=== PATIENT | female | born 1950 | race Caucasian/White ===

== ENCOUNTER 2022-09-16 03:34 | Emergency (ER) | payer MEDICARE, OTHER, SELFPAY ==
[2022-09-16] VITALS (12 sets, daily range): BP systolic 113–129; BP diastolic 54–61; PULSE 60–82; RESP 20; TEMP 36.4–36.5; O2SAT 92–96; BMI 22.9
--- NOTE | 2022-09-16 04:19 | CRLHL7_ITS ---
For Patients: As a result of the Century Cures Act, medical imaging exams and procedure reports are released immediately into your electronic medical record. You may view this report before your referring provider. If you have questions, please contact your health care provider. INDICATION: Cough and syncope COMPARISON: May 17, 2022 TECHNIQUE: PA and lateral views of the chest were acquired FINDINGS: TUBES AND LINES: None. HEART AND MEDIASTINUM: The heart size is normal. The mediastinal contour appears normal for patient age. LUNGS AND PLEURAL SPACES: The lungs appear normal.The pleural spaces are unremarkable. OSSEOUS STRUCTURES: Age-appropriate appearance. No acute focal finding. IMPRESSION: No evidence of active pulmonary disease. Dictated by Noe Banks MD @ 09/16/2022 5:16:27 AM (Electronically Signed)
--- NOTE | 2022-09-16 04:28 | ED_ITS ---
HPI - General Adult General Chief complaint: Syncope/Fainted Stated complaint: Syncope Time Seen by Provider: 09/16/22 03:59 Source: patient and family Mode of arrival: ambulatory Limitations: no limitations History of Present Illness HPI narrative: 72-year-old female with a history of PVCs and rheumatoid arthritis presents to the emergency department feeling unwell for the past 9 days and a syncopal versus presyncopal episode early this morning. Patient states that she started having URI symptoms about 10 days ago, initially improving 2-3 days ago. She states that yesterday her symptoms worsened, causing her to lay in bed most of the day. She began having loose stools yesterday evening. This morning at about 2:00 a.m. which is about 1 hour prior to arrival, she felt the sudden urge to get up and go to the bathroom for a bowel movement. She can be prone to dizziness, therefore she often will sit at the side of the mentor to prior to getting up and walking when leaving a supine position. She reports that she begin feeling weak when she got up to go to the bathroom, made it to the toilet and felt like she was going to pass out. Because of this she lowered herself to the floor. She does think she completely lost consciousness but did have a large sudden loose bowel movement on the ground. After couple of minutes, she got herself up and cleaned up the mess. She called her daughter who advised she come to the ED. She gives deferring accounts to me verses the nurses on whether she passed out or not, she is not confident. There is not a large amount of lost time. Certainly no tongue biting or seizure like report. No postictal type symptoms. She does have a history of PVCs but no prior syncopal issues. Does not take Mayur inhibitors. No history of renal issues. She admits to poor activity and weakness while she has been ill for the last 24 hours. There was no blood in her stools. There has been no vomiting. She reports good oral intake. No fevers. She is immunosuppressed on methotrexate. She reports that she is vaccinated against COVID. She tried taking some Mucinex for her symptoms yesterday, nothing in the past 12 hours. No Tylenol, ibuprofen or other similar medications. Cough is productive of greenish-yellow sputum for the past 24 hours. No pertinent travel, no known exposures to any particular illness. Past medical history notable for RA, immunosuppressed on both Remicade and methotrexate. Surgical history is notable for remote appendectomy, uncomplicated. She has frequent PVCs but no specific cardiac issues. She has p.r.n. metoprolol, denies use of this in the last few days. Medications are reviewed and accurate per listed EMR. Many of these are p.r.n. under not currently in use. The only true long-term medications are her Synthroid, m ethotrexate, Remicade. She denies any drug allergies. Socially she is a nonsmoker with no pertinent travel. ROS is notable for the generalized, GI, respiratory symptoms as described above, otherwise denies times 12 systems. Related Data Home Medications Medication Instructions Recorded Confirmed azithromycin 250 mg tablet 250 mg PO 05/17/22 05/17/22 codeine 10 mg-guaifenesin 100 mg/5 5 ml PO 05/17/22 05/17/22 mL oral liquid fluticasone propionate 110 g inhalation 05/17/22 05/17/22 mcg/actuation HFA aerosol inhaler (Flovent HFA) folic acid 1 mg tablet 1 mg PO 05/17/22 05/17/22 infliximab 100 mg intravenous IV 05/17/22 05/17/22 solution (Remicade) levothyroxine 50 mcg tablet 50 mcg PO 05/17/22 05/17/22 (Synthroid) methotrexate sodium (PF) 25 mg/mL 25 mg IM 05/17/22 05/17/22 injection solution metoprolol tartrate 25 mg tablet 25 mg PO 05/17/22 05/17/22 prednisone 20 mg tablet 20 mg PO 05/17/22 05/17/22 syringe with needle 1 mL 27 x 1/2 #25 ea 05/17/22 05/17/22 (BD SafetyGlide Tuberculin Regular Bevel) Previous Rx's Medication Instructions Recorded doxycycline hyclate 100 mg capsule 100 mg PO BID #14 caps 09/16/22 Allergies Allergy/AdvReac Type Severity Reaction Status Date / Time No Known Drug Allergies Allergy Verified 05/17/22 14:43 PFSH PFS Social History Smoking Status: Former smoker Do you use any of these nicotine containing products: None Second hand tobacco smoke exposure: Yes ( smokes outside) How often do you have a drink containing alcohol: never AUDIT-C Alcohol total score: 0 Non-prescribed substance use: denies use service: No Exam Const: Vital Signs, click to edit/add: Vital Signs - 24 hr 09/16/22 03:40 09/16/22 03:59 09/16/22 04:02 Temperature 97.7 F 97.7 F Pulse Rate Pulse Rate [Right Pulse Oximeter] 75 75 Pulse Rate [orthos tatic lying] 73 Pulse Rate [orthos tatic sitting] 80 Pulse Rate [orthos tatic standing] 82 Respiratory Rate 20 Blood Pressure Blood Pressure [Ri ght Upper Arm] 128/59 L 113/61 Blood Pressure [or thostatic lying] 128/56 L Blood Pressure [or thostatic sitting] 126/54 L Blood Pressure [or thostatic standing ] 113/61 Pulse Oximetry 96 96 Oxygen Delivery Me od Room Air Room Air 09/16/22 04:12 09/16/22 04:15 09/16/22 04:30 Temperature Pulse Rate 76 76 72 Pulse Rate [Right Pulse Oximeter] Pulse Rate [orthos tatic lying] Pulse Rate [orthos tatic sitting] Pulse Rate [orthos tatic standing] Respiratory Rate Blood Pressure Blood Pressure [Ri ght Upper Arm] Blood Pressure [or thostatic lying] Blood Pressure [or thostatic sitting] Blood Pressure [or thostatic standing ] Pulse Oximetry 95 95 94 Oxygen Delivery Me thod 09/16/22 04:35 09/16/22 04:45 09/16/22 05:01 Temperature Pulse Rate 74 71 76 Pulse Rate [Right Pulse Oximeter] Pulse Rate [orthos tatic lying] Pulse Rate [orthos tatic sitting] Pulse Rate [orthos tatic standing] Respiratory Rate Blood Pressure 129/59 L Blood Pressure [Ri ght Upper Arm] Blood Pressure [or thostatic lying] Blood Pressure [or thostatic sitting] Blood Pressure [or thostatic standing ] Pulse Oximetry 93 92 95 Oxygen Delivery Me thod 09/16/22 05:04 09/16/22 05:15 Temperature Pulse Rate 73 74 Pulse Rate [Right Pulse Oximeter] Pulse Rate [orthos tatic lying] Pulse Rate [orthos tatic sitting] Pulse Rate [orthos tatic standing] Respiratory Rate Blood Pressure 125/61 Blood Pressure [Ri ght Upper Arm] Blood Pressure [or thostatic lying] Blood Pressure [or thostatic sitting] Blood Pressure [or thostatic standing ] Pulse Oximetry 94 93 Oxygen Delivery Me thod Documenting provider has reviewed patient's vital signs: yes Common normals: no apparent distress General appearance: cooperative and well kempt HENMT: Common normals: normocephalic, head/scalp atraumatic and TM's normal bilaterally Head and scalp: normal to inspection, normocephalic and atraumatic Tympanic membrane: TM's normal bilaterally Mouth: oral and palatal mucosa normal Throat: posterior oropharynx normal Eye: Common normals: EOMs intact bilaterally General eye: normal appearance of both eyes Other: Normal gaze and visual tracking Neck & C-Spine: Other: Mild anterior cervical and submandibular lymphadenopathy. No obvious mass Resp: Common normals: normal respiratory effort and no use of accessory muscles Effort & inspection: able to speak in complete sentences Other: Breath sounds are a little decreased but no obvious crackles, rhonchi or wheeze. Cardio: Common normals: regular rate, regular rhythm, no murmurs and peripheral pulses 2+ throughout Rate: regular rate Rhythm: regular rhythm Peripheral pulses: pulses 2+ throughout GI: Common normals: Normal to inspection, nondistended, normoactive bowel so unds present, soft to palpation, non-tender and no hepatosplenomegaly Palpation: soft and no hepatosplenomegaly Extremity: Common normals: no pedal edema Neuro: Speech: speech normal Motor exam: strength 5/5 throughout, no tremor noted and no movement abnormalities noted Psych: Common normals: thought process normal, cooperative, affect normal and activity/motor behavior normal Appearance: well kempt Thought process: normal thought process Insight: insight good Judgement: judgment good Skin: Common normals: no rashes or lesions noted General skin exam: no rashes or lesions noted Course Vital Signs Vital signs: Initial Vital Signs Temperature 97.7 F 09/16/22 03:40 Temperature Source Temporal Artery Scan 09/16/22 03:40 Pulse Rate 75 09/16/22 03:40 Pulse Rhythm 09/16/22 03:40 Blood Pressure 128/59 L 09/16/22 03:40 Blood Pressure Mean 82 09/16/22 03:40 Blood Pressure Position Supine 09/16/22 03:40 Pulse Oximetry 96 09/16/22 03:40 Oxygen Delivery Method 09/16/22 03:40 Vital Signs Temperature 97.7 F 09/16/22 03:40 Pulse Rate 75 09/16/22 03:40 Blood Pressure 128/59 L 09/16/22 03:40 Pulse Oximetry 96 09/16/22 03:40 Oxygen Delivery Method 09/16/22 03:40 Temperature 97.7 F 09/16/22 04:02 Pulse Rate 74 09/16/22 05:15 Respiratory Rate 20 09/16/22 04:02 Blood Pressure 125/61 09/16/22 05:04 Pulse Oximetry 93 09/16/22 05:15 Oxygen Delivery Method 09/16/22 04:02 Medical Decision Making MDM Narrative Medical decision making narrative: Story suggest but vagal syncope in the setting of underlying acute illness, naturally prone to hypotension and orthostatic symptoms as she describes. Different diagnosis also includes electrolyte abnormality, dehydration, infection, sepsis, pneumonia, cardiac disease or neurological process. Neurological exam and initial EKG are reassuring. Recommended chest x-ray, basic labs, swabs for COVID. Orthostatic vital signs and then will bolus 1 L of normal saline while we await lab results. She was agreeable to this. Update: Patient's vital signs have remained stable, tolerated her 1 L fluid bolus well. All x-ray and lab findings reviewed with patient, reassuring. She is insisting upon an antibiotic. We discussed the risks and benefits of this. I recommended that she wait 48 hours, as I do not suspect a bacterial infection. If her symptoms are not improving in 48 hours, then she may supervisor opening and picking antibiotic that I have sent to her local pharmacy. She was agreeable to the this plan. We discussed symptom management of her diarrhea, tips to help reduce her chance of recurrent syncope and p.r.n. use of Mucinex and other medications. She verbalizes understanding and agreement. Lab Data Lab results reviewed: Yes I reviewed the patient's lab results Lab results narrative: No leukocytosis. Normal procalcitonin, normal CRP. Remicade and methotrexate use could somewhat mask a white blood cell count but the other values are so reassuring. Do not suspect that this is a bacterial infection. A bacterial infection causing both diarrhea and a cough would also be quite unusual. Labs: Lab Results 02/10/23 02/10/23 02/10/23 Range/Units 04:30 04:30 04:30 WBC 9.14 (4.50-11.00) K/uL RBC 4.34 (4.00-5.20) m/uL Hgb 13.0 (12.0-16.0) gm/dL Hct 38.3 (33.0-51.0) % MCV 88 (80-100) fL MCH 30 (26-34) pg MCHC 34 (32-36) gm/dL RDW Coeff of Katia 13.3 (11.5-15.5) % Plt Count 244 (140-440) K/uL Neut % (Auto) 83.6 H (42.0-72.0) % Lymph % (Auto) 10.2 L (20-44) % Gibson % (Auto) 5.8 (0.0-11.0) % Eos % (Auto) 0.1 (0.0-7.0) % Baso % (Auto) 0.2 (0.0-3.0) % Neut # (Auto) 7.60 H (1.7-7.0) K/uL Lymph # (Auto) 0.90 (0.90-2.90) K/uL Gibson # (Auto) 0.50 (0.00-0.90) K/UL Eos # (Auto) 0.01 (0.00-0.50) K/uL Baso # (Auto) 0.02 (0.00-0.30) K/uL Sodium 134 L (135-149) mmol/L Potassium 4.1 (3.6-5.1) mmol/L Chloride 104 (96-114) mmol/L Carbon Dioxide 23 (20-32) mmol/L BUN 9 (7-30) mg/dL Creatinine 0.7 (0.5-1.5) mg/dL Estimated Creat Clear 37.24 Estimated GFR 91 ml/min Glucose 129 H (60-115) mg/dL Calcium 8.5 (8.4-10.6) mg/dL Troponin I < 0.01 L (0.01-0.04) ng/mL C-Reactive Protein 0.7 (0.5-1.0) mg/dL NT-Pro-B Natriuret Pep 838 pg/mL Procalcitonin 0.06 (<0.50) ng/mL SARS-CoV-2 (PCR) (Negative) Influenza Type A (PCR) (Negative) Influenza Type B (PCR) (Negative) RSV (PCR) (Negative) POC Troponin I 0.00 L (0.01-0.04) ng/ml 09/16/22 Range/Units 04:30 WBC (4.50-11.00) K/uL RBC (4.00-5.20) m/uL Hgb (12.0-16.0) gm/dL Hct (33.0-51.0) % MCV (80-100) fL MCH (26-34) pg MCHC (32-36) gm/dL RDW Coeff of Katia (11.5-15.5) % Plt Count (140-440) K/uL Neut % (Auto) (42.0-72.0) % Lymph % (Auto) (20-44) % Gibson % (Auto) (0.0-11.0) % Eos % (Auto) (0.0-7.0) % Baso % (Auto) (0.0-3.0) % Neut # (Auto) (1.7-7.0) K/uL Lymph # (Auto) (0.90-2.90) K/uL Gibson # (Auto) (0.00-0.90) K/UL Eos # (Auto) (0.00-0.50) K/uL Baso # (Auto) (0.00-0.30) K/uL Sodium (135-149) mmol/L Potassium (3.6-5.1) mmol/L Chloride (96-114) mmol/L Carbon Dioxide (20-32) mmol/L BUN (7-30) mg/dL Creatinine (0.5-1.5) mg/dL Estimated Creat Clear Estimated GFR ml/min Glucose (60-115) mg/dL Calcium (8.4-10.6) mg/dL Troponin I (0.01-0.04) ng/mL C-Reactive Protein (0.5-1.0) mg/dL NT-Pro-B Natriuret Pep pg/mL Procalcitonin (<0.50) ng/mL SARS-CoV-2 (PCR) Negative SARS-CoV-2 (Negative) Influenza Type A (PCR) Negative PCR FLU A (Negative) Influenza Type B (PCR) Negative PCR FLU B (Negative) RSV (PCR) Negative PCR RSV (Negative) POC Troponin I (0.01-0.04) ng/ml Imaging Data Chest x-ray: My impression: Normal chest x-ray, degenerative spine changes Radiologist's impression: IMPRESSION: No evidence of active pulmonary disease. ECG Data Attestation: I personally reviewed and interpreted this ECG as follows: Prior ECG tracings: not available for review (Reviewed from old EMR and current, none available.) Interpretation: Sinus rhythm with inverted T-waves in some mild left ventricular hypertrophy. Otherwise normal axis with no significant ST elevation or depression to suggest acute ischemia. Discharge Plan Discharge Clinical Impression: Vasovagal syncope, Viral infection Patient Disposition: Home w/ Parent or Adult Condition: Improved Instructions: Syncope in Older Adults (ED) Additional Instructions: As we discussed, passing out with diarrhea episodes is unfortunately common and tends to worsen as people age. We did not see any signs of anemia, electrolyte abnormality, bacterial infection or inflammation that was causing today's symptoms. Your swabs for influenza, COVID and RSV are also negative. I do suspect that you have a viral illness causing your cough and diarrhea symptoms. Your chest x-ray was also completely clear. Being on Remicade and methotrexate can skew a couple of my blood tests, but your procalcitonin and inflammatory markers are so low, that I do not suspect that we are missing a bacterial infection here. As we discussed, there can be risks to taking antibiotics including more dangerous super infections such as C diff. I have recommended that you wait on starting any antibiotics. It is okay and encouraged to take Imodium for your diarrhea. If your symptoms are not improving in a couple of days, you may supervisor opening and picking the doxycycline, the antibiotic I have sent to your pharmacy and started for your cough. If your symptoms are not improving 3 days after starting the antibiotic, follow up with your primary care provider. Drink plenty of fluids and eat salt containing foods while you are recovering. Get up slowly from bed as becoming lightheaded, especially with when you have the urge to have a bowel movement are very common. Activity Level: Activity as Tolerated Discharge Diet: Regular Prescriptions: New doxycycline hyclate 100 mg capsule 100 mg PO BID Qty: 14 0RF No Action prednisone 20 mg tablet 20 mg PO azithromycin 250 mg tablet 250 mg PO Label Comments: Has not started the medication yet codeine-guaifenesin 10-100 mg/5 mL liquid 5 ml PO Label Comments: TAKE 10 ML BY MOUTH AT BEDTIME IF NEEDED FOR COUGH. methotrexate sodium (PF) 25 mg/mL solution 25 mg IM (DME) BD SafetyGlide TB Reg Bevel 1 mL 27 x 1/2 syringe See Rx Instructions .ROUTE .MEDSUPPLY Qty: 25 Rx Instructions: As directed metoprolol tartrate 25 mg tablet 25 mg PO Label Comments: Take 1-2 tablets by mouth daily as needed for palpitations levothyroxine [Synthroid] 50 mcg tablet 50 mcg PO folic acid 1 mg tablet 1 mg PO fluticasone propionate [Flovent HFA] 110 mcg/actuation HFA aerosol inhaler inhalation infliximab [Remicade] 100 mg recon soln IV Follow Up/Referrals: Alla Valero PA-C [Primary Care Provider] - Stand Alone Forms: MyHealth Info Instructions
[2022-09-16] MEDS: 0.9 % SODIUM CHLORIDE 1000 ml 1,000 ML IV (04:41)
[2022-09-16 04:43] LABS: Basophils Absolute Auto 0.02 K/uL (0.00-0.30); Basophils Percent Auto 0.2 % (0.0-3.0); Eosinophils Absolute Auto 0.01 K/uL (0.00-0.50); Eosinophils Percent Auto 0.1 % (0.0-7.0); Hematocrit 38.3 % (33.0-51.0); Immature Granulocytes Abs Auto 0.01 K/uL (0.00-0.30); Immature Granulocytes Pct Auto 0.1 %; Lymphocytes Percent Auto 10.2 % (20-44); Mean Corpuscular HGB Conc 34 gm/dL (32-36); Mean Corpuscular Hemoglobin 30 pg (26-34); Mean Corpuscular Volume 88 fL (80-100); Monocytes Percent Auto 5.8 % (0.0-11.0); Neutrophils Percent Auto 83.6 % (42.0-72.0); Platelet Count* 244 K/uL (140-440); RDW Coefficient of Variation % 13.3 % (11.5-15.5); Red Blood Count 4.34 m/uL (4.00-5.20); White Blood Count* 9.14 K/uL (4.50-11.00)
[2022-09-16 04:44] LABS: Slide Review Reflex No
[2022-09-16 04:55] LABS: Chloride* 104 mmol/L (96-114)
[2022-09-16 04:56] LABS: Potassium* 4.1 mmol/L (3.6-5.1); Sodium* 134 mmol/L (135-149)
[2022-09-16 04:58] LABS: Creatinine* 0.7 mg/dL (0.5-1.5); Est. Creatinine Clearance* 37.24; Estimated Glomerular Filt Rate 91 ml/min
[2022-09-16 04:59] LABS: Blood Urea Nitrogen* 9 mg/dL (7-30); Carbon Dioxide* 23 mmol/L (20-32); Glucose* 129 mg/dL (60-115)
[2022-09-16 05:00] LABS: Calcium* 8.5 mg/dL (8.4-10.6)
[2022-09-16 05:02] LABS: C Reactive Protein* 0.7 mg/dL (0.5-1.0)
[2022-09-16 05:10] LABS: NT Pro B Type NatriureticPept* 838 pg/mL
[2022-09-16 05:16] LABS: Procalcitonin* 0.06 ng/mL (<0.50); Troponin I* < 0.01 ng/mL (0.01-0.04)
[2022-09-16 05:20] LABS: PCR FLU A Negative PCR FLU A (Negative); PCR FLU B Negative PCR FLU B (Negative); PCR RSV Negative PCR RSV (Negative)
[2022-09-16 05:21] LABS: SARS PCR* Negative SARS-CoV-2 (Negative)
[2022-09-16 06:00] LABS: Appearance Urine Clear (Clear); Bilirubin Urine Negative (Negative); Blood Urine Negative (Negative); Color Urine Yellow (Yellow); Glucose Urine Negative (Negative); Ketones Urine Negative (Negative); Leukocyte Esterase Urine Negative (Negative); Nitrite Urine Negative (Negative); Protein Urine Negative (Negative); Specific Gravity Urine 1.015 (1.000-1.030); Urobilinogen Urine 0.2 (0.2-1.0); pH Urine 6.5 (5.0-8.5)
== END 2022-09-16 05:57 | disposition home or self-care (01) ==
PROVIDERS: Emergency Provider Family Medicine; PCP Student in an Organized Health Care Education/Training Program
DX: R55 Syncope and collapse (principal); B34.9 Viral infection, unspecified
CPT/HCPCS: 36415; 71046; 80048; 81003; 83880; 84145; 84484; 85025; 86140; 87502; 87634; 87635; 93005; 99284; 99285; J7030

== ENCOUNTER 2024-02-09 16:28 | Emergency (ER) | payer MEDICARE, OTHER, SELFPAY ==
[2024-02-09 16:39] VITALS: BP 128/77; PULSE 78; RESP 18; TEMP 36.1; O2SAT 97; BMI 24.2
[2024-02-09 16:57] LABS: Appearance Urine Clear (Clear); Bilirubin Urine Negative (Negative); Blood Urine Negative (Negative); Color Urine Yellow (Yellow); Glucose Urine Negative (Negative); Ketones Urine Negative (Negative); Leukocyte Esterase Urine Negative (Negative); Nitrite Urine Negative (Negative); Protein Urine Negative (Negative); Specific Gravity Urine <= 1.005 (1.000-1.030); Urobilinogen Urine 0.2 (0.2-1.0); pH Urine 5.5 (5.0-8.5)
--- OUTSIDE RECORDS SUMMARY | 2024-02-09 17:04 | XMS_ITS | Continuity of Care Document ---
Author Organization [facility] Address [address] [address] [place] [address] Phone Care Team Providers Care Back Joiner Name Role Phone Sherlyn Nash CRNA Unavailable Unavailable Allergies, Adverse Reactions, Alerts Substance Reaction Status Criticality Sulfa (Sulfonamide Antibiotics) Active No Information epinephrine Faint Active No Information Medications Medication Instructions Dosage Effective Dates (start - stop) Status Comments metoprolol succinate ER 25 mg tablet,extended release 24 hr take 1 Tablet by oral route every as needed as needed 25 MG - Active SUDAFED (unknown strength) as needed Not Available - Active Flonase Allergy Relief 50 mcg/actuation nasal spray,suspension spray 2 spray by intranasal route every day in each nostril as needed 100-100 MCG - Active famotidine 10 mg tablet take 1 tablet by oral route every day as needed 10 MG - Active Fiber Gummies 2 gram chewable tablet - Active Multivitamin unknown Oral - Active Vitamin D3 2,000 unit capsule take 1 tablet per day - Active REFRESH OPTIVE (unknown strength) Not Available - Active PROBIOTIC (unknown strength) take 1 tablespoon by oral route every day Not Available - Active Enbrel 50 mg/mL (0.98 mL) subcutaneous syringe inject 1 milliliter by subcutaneous route every week 50 MG - Active Rasuvo (PF) 25 mg/0.5 mL subcutaneous auto-injector inject 0.5 milliliter by subcutaneous route every week 25 MG - Active Tirosint 50 mcg capsule take 1 capsule by oral route every day 50 MCG - Active folic acid 1 mg tablet take 1 tablet by oral route every day 1 MG - Active aspirin 81 mg chewable tablet chew 1 tablet by oral route every week 81 MG - Active ibuprofen 800 mg tablet take 1 tablet by oral route 3 times every day with food 800 MG - Active SUDAFED (unknown strength) as needed Not Available - No Longer Active Prevacid 30 mg capsule,delayed release take 1 capsule by oral route every day before a meal 30 MG - No Longer Active metoprolol succinate ER 25 mg tablet,extended release 24 hr take 1 Tablet by oral route every as needed 25 MG - No Longer Active Procedures Procedure Date Colonoscopy Flex; W/bx /mx Level Iv-surg Path Gross/micro 21 Offic/outpt E&m Estab Low-mod 9 Ugi Endo; Dx W/wo Collec Specm 19 Ugi Endo; W/bx /mx Level Iv-surg Path Gross/micro 17 Colorectal Ca Screen Hi Risk I 16 Advance Directives Directive Yes / No Effective Date File Name No Information Encounters Encounter Description Practice Location Reason(s) For Visit Diagnoses Date Provider Providers Copied on Encounter [facility], [address] [address], [place], [place], [id number], [place] tel:[phone] Terrence [facility] No Information 1 Charity Plata. [address] [facility], [facility] [address], [place], [place], [id number], [place]. tel:[phone] Referring Provider: Ab Bowers, [address], [address]. tel:[phone] [facility], [address] [address], [place], [id number], [place] tel:[phone] [facility] Other hemorrhoidsDiv erticulosis large intestine w/o perforation or abscess w/o bleedingCecal polypEncounter for screening for malignant neoplasm of colonPersonal history of colonic polypsBenign neoplasm of cecumDvrtclos of lg int w/o perforation or abscess w/o bleedingBenign neoplasm of cecumPersonal history of colonic polyps 1 Rosemary Berger. [address] [facility], [facility] [address], [place], [id number], [place]. tel:[phone] Referring Provider: Referral Self, USE FOR SELF REFERRALS. [facility], [address] [address], [facility] [place], [id number], tel:[phone] [facility] No Information 1 Marilee Ferrera. [address] [facility], [facility] [address], [place], [id number], [place]. tel:[phone] Offic/outpt E&m Estab Low-mod [facility], [address] [address], [place], [id number], [place] tel:[phone] [facility] GI Symptoms or Concerns (chief complaint) HematocheziaIn ternal and external hemorrhoids without complicationOt her hemorrhoids 9 Jayesh Godwin. [address] [facility], [facility] [address], [place], [id number], [place]. tel:[phone] Referring Provider: [place] R, [address] [place], [address]. tel:[phone] [facility], [address] [address], [facility] [place], [id number], [place] tel:[phone] [facility] Gastroesophage al reflux disease without esophagitisGas tro-esophageal reflux disease without esophagitis Fabiola Lynne [address], [id number], [place]. tel:[phone] Referring Provider: [place] R, [address] [place], [address]. tel:[phone] [facility], [address] [address], [place], [place], [id number], [place] tel:[phone] [facility] Epigastric painEpigastric pain 7 Kwesi Brooks. [facility], [id number], [place]. tel:[phone] Referring Provider: [place] R, [address] [place], [address]. tel:[phone] [facility], [address] [address], [place], [place], [address], [place] tel:[phone] [facility] Personal history of colonic polypsDivertic ulosis large intestine w/o perforation or abscess w/o bleedingIntern al and external hemorrhoids without complicationEn counter for screening for malignant neoplasm of colonResidual hemorrhoidal skin tagsDvrtclos of lg int w/o perforation or abscess w/o bleedingPerson al history of colonic polyps 6 Chaz Galarza. [address] [place] [address], [id number], [place]. tel:[phone] Referring Provider: Birgit Prince MD, [address] [place], [address]. tel:[phone] Family History Family Member Type Diagnosis Age At Onset Mother Problem (finding) Thyroid disorder Son Problem (finding) Colon polyps Son Problem (finding) Alive and well Daughter Problem (finding) Alive and well Brother Problem (finding) Alive and well Father Problem (finding) Immunizations Vaccine Date Status Comments influenza, high-dose seasona l, quadrivalent, .7mL dose, preservative free administered Note: [facility] bi-direct ional interface ; Source: Other Registry influenza, high dose seasona l, preservative-free administered Note: [facility] bi-direct ional interface ; Source: Other Registry Prevnar 13 administered Note: [facility] bi-d irectional interface ; Source: Other Registry zoster vaccine recombinant administered N ote: [facility] bi-directional interface ; Source: Other Registry zoster vaccine recombinant administered N ote: [facility] bi-directional interface ; Source: Other Registry influenza, high dose seasona l, preservative-free administered Note: [facility] bi-direct ional interface ; Source: Other Registry Afluria Qd administered Note: [facility] bi-directional interface ; Source: Other Registry Afluria Qd administered Note: [facility] bi-directional interface ; Source: Other Registry tetanus toxoid, reduced diphtheria toxoid, and acellular pertussis vaccine, adsorbed administered Note: [facility] b i-directional interface ; Source: Other Registry Afluria Qd administered Note: [facility] bi-directional interface ; Source: Other Registry Afluria Qd administered Note: [facility] bi-directional interface ; Source: Other Registry Influenza, seasonal, injecta ble, preservative free administered Note: [facility] bi-direct ional interface ; Source: Other Registry Influenza, seasonal, injectable administe red Note: [facility] bi- directional interface ; Source: Other Registry Novel [id number], all formulations administered Note: [facility] bi-direct ional interface ; Source: Other Registry Influenza, seasonal, injectable administe red Note: [facility] bi- directional interface ; Source: Other Registry Payers Payer name Insurance type Covered republican ID Authoriza tion(s) Medicare NGS MB [id number] [employer] [id number] Social History Type Description Quantity Date Captured Comments Sex Female Smoking Status No Information Chief Complaint And Reason For Visit No Information Reason For Referral Reason For Referral No Information History Of Present Illness Encounter Date Complaint History Of Prese nt Illness GI Symptoms or Concerns Dianna Mays is a very pleasant 68-year-old female who has made an appointment for further evaluation of her hemorrhoids. Her last colonoscopy was in August 2015 and internal and external hemorrhoids were noted at that time. The patient states that she has known that she has had hemorrhoids for many years (at least 15 years). She is particularly bothered by occasional bleeding. She notes that cleaning up or stool leakage is a problem for her. She states that when she saw a colorectal surgeon 10 years ago (before she started Enbrel and methotrexate) banding was an option. She denies any rectal intercourse or rectal foreign bodies. She does admit to some minor straining with the second bowel movement a day. She does not use any fiber supplements and has not used anything to treat her hemorrhoids. Functional Status Date Functional Assessmen t No Information Instructions Date Instruction Additional Infor thais Diverticulosis/Diverticulitis Re lated to Cecal polyp Colon Polyps Related to Cecal polyp Hemorrhoids Related to Cecal polyp Colon Cancer Prevention Related to Cecal polyp High Fiber Diet Related to Cecal polyp high fiber diet Related to Inter nal and external hemorrhoids without complication Hemorrhoids Related to Inter nal and external hemorrhoids without complication Diverticulosis/Diverticulitis Re lated to Diverticulosis large intestine w/o perforation or abscess w/o bleeding High Fiber Diet Related to Diver ticulosis large intestine w/o perforation or abscess w/o bleeding Hemorrhoids Related to Inter nal and external hemorrhoids without complication Colon Polyps Related to Perso nal history of colonic polyps Colon Cancer Prevention Related to Personal history of colonic polyps Assessments Type Assessment Date No Information Patient Care Teams Name Effective Dates (start - stop) Status Members No Information
--- OUTSIDE RECORDS SUMMARY | 2024-02-09 17:05 | XMS_ITS | Continuity of Care Document ---
Author Organization [facility] Address [address] [place] [address] Phone Care Team Providers Care Business Objects Developer Name Role Phone Kaden Fitzgerald MD Unavailable Unavailable Allergies, Adverse Reactions, Alerts Substance Reaction Status Criticality Sulfa (Sulfonamide Antibiotics) GI problems Active No Information epinephrine Blood pressure drops(moderate) Active No Information Medications Medication Instructions Dosage Effective Dates (start - stop) Status Comments folic acid 1 mg tablet TAKE 1 TABLET EVERY MORNING - Active methotrexate sodium 25 mg/mL injection solution inject 0.6 milliliter by Subcutaneous route every week - Active 90 day supply. PRESERVATIVE FREE BD SafetyGlide Tuberculin Regular Bevel 1 mL 27 x 1/2 syringe TO BE USED WITH INJECTABLE METHOTREXATE - Active Remicade 100 mg intravenous solution infuse ( ) by intravenous route every ( ) weeks - Active multivitamin tablet take 1 tablet by oral route every day with food - Active Refresh Optive 0.5 %-0.9 % eye drops instill 1 drop by ophthalmic route in each eye 2 times every day - Active Vitamin D3 4,000 unit capsule take 1 Capsule by Oral route every day - Active levothyroxine 50 mcg tablet take 1 tablet (50MCG) by oral route every day 50 MCG - Active metoprolol tartrate 25 mg tablet take 1 tablet (25MG) by oral route as needed - Active Procedures Procedure Date Injection, infliximab, excludes biosimil ar, 10 mg Chemo, Iv Infusion, 1 Hr Chemo, Iv Infusion, Addl Hr Office/Outpatient Visit, Est Routine Venipuncture Rbc Sed Rate, Automated Assay Of Serum Albumin Assay Of Creatinine Transferase (Ast) (Sgot) Alanine Amino (Alt) (Sgpt) CReactive Protein Complete Cbc, Automated Remicade Infliximab Chemo, Iv Infusion, 1 Hr Chemo, Iv Infusion, Addl Hr Remicade Infliximab Chemo, Iv Infusion, 1 Hr Chemo, Iv Infusion, Addl Hr Routine Venipuncture Rbc Sed Rate, Automated Assay Of Serum Albumin Assay Of Creatinine Transferase (Ast) (Sgot) Alanine Amino (Alt) (Sgpt) CReactive Protein Complete Cbc, Automated Remicade Infliximab Chemo, Iv Infusion, 1 Hr Chemo, Iv Infusion, Addl Hr Remicade Infliximab Chemo, Iv Infusion, 1 Hr Chemo, Iv Infusion, Addl Hr Office/Outpatient Visit, Est Routine Venipuncture Rbc Sed Rate, Nonautomated Assay Of Serum Albumin Assay Of Creatinine Transferase (Ast) (Sgot) Alanine Amino (Alt) (Sgpt) CReactive Protein Complete Cbc, Automated Remicade Infliximab Chemo, Iv Infusion, 1 Hr Chemo, Iv Infusion, Addl Hr Remicade Infliximab Chemo, Iv Infusion, 1 Hr Chemo, Iv Infusion, Addl Hr Office/Outpatient Visit, Est Routine Venipuncture Rbc Sed Rate, Automated Assay Of Serum Albumin Assay Of Creatinine Transferase (Ast) (Sgot) Alanine Amino (Alt) (Sgpt) CReactive Protein Complete Cbc, Automated Remicade Infliximab Chemo, Iv Infusion, 1 Hr Chemo, Iv Infusion, Addl Hr Remicade Infliximab Chemo, Iv Infusion, 1 Hr Chemo, Iv Infusion, Addl Hr Office/Outpatient Visit, Est Routine Venipuncture Rbc Sed Rate, Automated Assay Of Serum Albumin Assay Of Creatinine Transferase (Ast) (Sgot) Alanine Amino (Alt) (Sgpt) CReactive Protein Complete Cbc, Automated Remicade Infliximab Chemo, Iv Infusion, 1 Hr Chemo, Iv Infusion, Addl Hr Solumedrol Up To 40mg Tx/Pro/Dx Inj New Drug Addon Remicade Infliximab Chemo, Iv Infusion, 1 Hr Chemo, Iv Infusion, Addl Hr Office/Outpatient Visit, Est Remicade Infliximab Chemo, Iv Infusion, 1 Hr Chemo, Iv Infusion, Addl Hr Remicade Infliximab Chemo, Iv Infusion, 1 Hr Chemo, Iv Infusion, Addl Hr Office/Outpatient Visit, Est Routine Venipuncture Rbc Sed Rate, Nonautomated Assay Of Serum Albumin Assay Of Creatinine Transferase (Ast) (Sgot) Alanine Amino (Alt) (Sgpt) CReactive Protein Complete Cbc, Automated Remicade Infliximab Chemo, Iv Infusion, 1 Hr Chemo, Iv Infusion, Addl Hr Remicade Infliximab Chemo, Iv Infusion, 1 Hr Chemo, Iv Infusion, Addl Hr Remicade Infliximab Chemo, Iv Infusion, 1 Hr Chemo, Iv Infusion, Addl Hr Orencia Abatacept Ther/Proph/Diag Iv Inf, Init Office/Outpatient Visit, Est Routine Venipuncture Assay Of Serum Albumin Assay Of Creatinine Transferase (Ast) (Sgot) Alanine Amino (Alt) (Sgpt) Rbc Sed Rate, Nonautomated CReactive Protein Tb Test, Cell Immun Measure Complete Cbc, Automated Orencia Abatacept Ther/Proph/Diag Iv Inf, Init Orencia Abatacept Ther/Proph/Diag Iv Inf, Init Office/Outpatient Visit, Est Routine Venipuncture Rbc Sed Rate, Nonautomated Assay Of Serum Albumin Assay Of Creatinine Transferase (Ast) (Sgot) Alanine Amino (Alt) (Sgpt) CReactive Protein Complete Cbc, Automated Orencia Abatacept Ther/Proph/Diag Iv Inf, Init Orencia Abatacept Ther/Proph/Diag Iv Inf, Init Office/Outpatient Visit, Est Routine Venipuncture Specimen Handling Assay Of Serum Albumin Assay Of Creatinine Transferase (Ast) (Sgot) Alanine Amino (Alt) (Sgpt) Ther/Proph/Diag Iv Inf, Init Orencia Abatacept Orencia Abatacept Ther/Proph/Diag Iv Inf, Init Orencia Abatacept Ther/Proph/Diag Iv Inf, Init Orencia Abatacept Ther/Proph/Diag Iv Inf, Init Office/Outpatient Visit, Est Routine Venipuncture Assay Of Serum Albumin Assay Of Creatinine Transferase (Ast) (Sgot) Alanine Amino (Alt) (Sgpt) Complete Cbc, Automated Orencia Abatacept Ther/Proph/Diag Iv Inf, Init Orencia Abatacept Ther/Proph/Diag Iv Inf, Init Orencia Abatacept Ther/Proph/Diag Iv Inf, Init Office/Outpatient Visit, Est Routine Venipuncture Rbc Sed Rate, Nonautomated Assay Of Serum Albumin Assay Of Creatinine Transferase (Ast) (Sgot) Alanine Amino (Alt) (Sgpt) CReactive Protein Complete Cbc, Automated Orencia Abatacept Chemo, Iv Infusion, 1 Hr Orencia Abatacept Chemo, Iv Infusion, 1 Hr Orencia Abatacept Chemo, Iv Infusion, 1 Hr Office/Outpatient Visit, Est Routine Venipuncture Rbc Sed Rate, Nonautomated Assay Of Serum Albumin Assay Of Creatinine Transferase (Ast) (Sgot) Alanine Amino (Alt) (Sgpt) CReactive Protein Complete Cbc, Automated Office/Outpatient Visit, Est Routine Venipuncture Specimen Handling Rbc Sed Rate, Nonautomated Assay Of Serum Albumin Assay Of Creatinine Transferase (Ast) (Sgot) Alanine Amino (Alt) (Sgpt) CReactive Protein Tb Test, Cell Immun Measure Complete Cbc, Automated Office/Outpatient Visit, Est Routine Venipuncture Assay Of Serum Albumin Assay Of Creatinine Transferase (Ast) (Sgot) Alanine Amino (Alt) (Sgpt) Complete Cbc, Automated Office/Outpatient Visit, Est Routine Venipuncture Rbc Sed Rate, Nonautomated Assay Of Serum Albumin Assay Of Creatinine Transferase (Ast) (Sgot) Alanine Amino (Alt) (Sgpt) CReactive Protein Complete Cbc, Automated Office/Outpatient Visit, Est Office/Outpatient Visit, Est Routine Venipuncture Assay Of Serum Albumin Assay Of Creatinine Transferase (Ast) (Sgot) Alanine Amino (Alt) (Sgpt) Complete Cbc, Automated Office/Outpatient Visit, Est Routine Venipuncture Specimen Handling Assay Of Serum Albumin Assay Of Creatinine Transferase (Ast) (Sgot) Alanine Amino (Alt) (Sgpt) Tb Test, Cell Immun Measure Office/Outpatient Visit, Est Routine Venipuncture Assay Of Serum Albumin Assay Of Creatinine Transferase (Ast) (Sgot) Alanine Amino (Alt) (Sgpt) Complete Cbc, Automated Office/Outpatient Visit, Est Routine Venipuncture Assay Of Serum Albumin Assay Of Creatinine Transferase (Ast) (Sgot) Alanine Amino (Alt) (Sgpt) Complete Cbc, Automated Office/Outpatient Visit, Est Routine Venipuncture Complete Cbc, Automated Assay Of Serum Albumin Assay Of Creatinine Transferase (Ast) (Sgot) Alanine Amino (Alt) (Sgpt) Office/Outpatient Visit, Est Routine Venipuncture Assay Of Serum Albumin Assay Of Creatinine Transferase (Ast) (Sgot) Alanine Amino (Alt) (Sgpt) Complete Cbc, Automated Vitamin D 25 Hydroxy Office/Outpatient Visit, Est Routine Venipuncture Complete Cbc, Automated Assay Of Serum Albumin Assay Of Creatinine Transferase (Ast) (Sgot) Alanine Amino (Alt) (Sgpt) Office/Outpatient Visit, Est Routine Venipuncture Assay Of Serum Albumin Assay Of Creatinine Transferase (Ast) (Sgot) Alanine Amino (Alt) (Sgpt) Complete Cbc, Automated Vitamin D 25 Hydroxy Office/Outpatient Visit, Est Routine Venipuncture Complete Cbc, Automated Assay Of Serum Albumin Assay Of Creatinine Transferase (Ast) (Sgot) Alanine Amino (Alt) (Sgpt) Office/Outpatient Visit, Est Routine Venipuncture Complete Cbc WAuto Diff Wbc Assay Of Serum Albumin Assay Of Creatinine Transferase (Ast) (Sgot) Alanine Amino (Alt) (Sgpt) Office/Outpatient Visit, Est Routine Venipuncture Complete Cbc WAuto Diff Wbc Assay Of Serum Albumin Assay Of Creatinine Transferase (Ast) (Sgot) Alanine Amino (Alt) (Sgpt) Office/Outpatient Visit, Est Routine Venipuncture Complete Cbc WAuto Diff Wbc Assay Of Serum Albumin Assay Of Creatinine Transferase (Ast) (Sgot) Alanine Amino (Alt) (Sgpt) Dxa Bone Density, Axial Office/Outpatient Visit, Est Routine Venipuncture Complete Cbc WAuto Diff Wbc Assay Of Serum Albumin Assay Of Creatinine Transferase (Ast) (Sgot) Alanine Amino (Alt) (Sgpt) Office/Outpatient Visit, Est Routine Venipuncture Complete Cbc WAuto Diff Wbc Rbc Sed Rate, Nonautomated CReactive Protein Assay Of Serum Albumin Assay Of Creatinine Transferase (Ast) (Sgot) Alanine Amino (Alt) (Sgpt) Office/Outpatient Visit, Est Routine Venipuncture Complete Cbc WAuto Diff Wbc Assay Of Serum Albumin Assay Of Creatinine Transferase (Ast) (Sgot) Alanine Amino (Alt) (Sgpt) Vitamin D 25 Hydroxy Office/Outpatient Visit, Est Routine Venipuncture Specimen Handling Complete Cbc WAuto Diff Wbc Assay Of Serum Albumin Assay Of Creatinine Transferase (Ast) (Sgot) Alanine Amino (Alt) (Sgpt) Office/Outpatient Visit, Est Routine Venipuncture Specimen Handling Complete Cbc WAuto Diff Wbc Assay Of Serum Albumin Assay Of Creatinine Transferase (Ast) (Sgot) Alanine Amino (Alt) (Sgpt) Office/Outpatient Visit, Est Routine Venipuncture Complete Cbc WAuto Diff Wbc Assay Of Serum Albumin Assay Of Creatinine Transferase (Ast) (Sgot) Alanine Amino (Alt) (Sgpt) Office/Outpatient Visit, Est Routine Venipuncture Specimen Handling Complete Cbc WAuto Diff Wbc CReactive Protein Assay Of Serum Albumin Assay Of Creatinine Transferase Ast Sgot Alanine Amino (Alt) (Sgpt) Dxa Bone Density, Axial Office/Outpatient Visit, New XRay Exam Of Hand 3v X-Ray Exam Of Foot 2v Routine Venipuncture Specimen Handling Anti Rheum Drugthxpyrx'D/Gvn CReactive Protein Complete Cbc WAuto Diff Wbc Rbc Sed Rate, Nonautomated Assay Of Serum Albumin Assay Of Creatinine Transferase Ast Sgot Alanine Amino Alt Sgpt Advance Directives Directive Yes / No Effective Date File Name No Information Encounters Encounter Description Practice Location Reason(s) For Visit Diagnoses Date Provider Providers Copied on Encounter [facility] , [address], [place], [address], [place] tel:[phone] [facility] , No Information 4 Lia Alfonso. [facility] [address], [place], [address], [place]. tel:[phone] Referring Provider: Kaden Wang, [facility] [address], [place], [address]. tel:[phone] Office/Outpa tient Visit, Est [facility] , [address], [place], [address], [place] tel:[phone] [facility] , Rheumatoid arthritis (chief complaint) Vitamin D deficiencySe ropositive RAOsteoporos is NOSCounselin gHigh risk medication monitoring 4 Lia Alfonso. [facility] [address], [place], [address], [place]. tel:[phone] Referring Provider: Kaden Wang, [facility] [address], [place], [address]. tel:[phone] [facility] , [address], [place], [address], [place] tel:[phone] [facility] , No Information Nov-2 4 Lia Alfonso. [facility] [address], [place], [address], [place]. tel:[phone] Referring Provider: Kaden Wang, [facility] [address], [place], [address]. tel:[phone] [facility] , [address], [place], [address], [place] tel:[phone] [facility] , No Information Mar-0 4 Jerson Vazquez. [address], [place], [address], [place]. tel:[phone] Referring Provider: Taylor Bonilla, [address], [place], [address]. 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 [address], [address], [place], [address], [place]. tel:[phone] Referring Provider: Taylor Bonilla, [address], [place], [address]. tel:[phone] [facility] , [address], [place], [address], [place] tel:[phone] [facility] , No Information 4 Lia Aflonso. [facility] [address], [place], [address], [place]. tel:[phone] Referring Provider: Kaden Wang, [facility] [address], [place], [address]. tel:[phone] [facility] , [address], [place], [address], [place] tel:[phone] [facility] , No Information 3 Lia Alfonso. [facility] [address], [place], [address], [place]. tel:[phone] Referring Provider: Kaden Wang, [facility] [address], [place], [address]. tel:[phone] Office/Outpa tient Visit, Est [facility] , [address], [place], [address], [place] tel:[phone] [facility] , Rheumatoid arthritis (chief complaint) Vitamin D deficiencySe ropositive RAOsteoporos is NOSCounselin [facility] risk medication monitoring 3 Lia Alfonso. [facility] [address], [place], [address], [place]. tel:[phone] Referring Provider: Kaden Wang, [facility] [address], [place], [address]. tel:[phone] [facility] , [address], [place], [address], [place] tel:[phone] [facility] , No Information 3 Lia Alfonso. [facility] [address], [place], [address], [place]. tel:[phone] Referring Provider: Kaden Wang, [facility] [address], [place], [address]. tel:[phone] [facility] , [address], [place], [address], [place] tel:[phone] [facility] , No Information 3 Lia Alfonso. [facility] [address], [place], [address], [place]. tel:[phone] Referring Provider: Kaden Wang, [facility] [address], [place], [address]. tel:[phone] Office/Outpa tient Visit, Est [facility] , [address], [place], [address], [place] tel:[phone] [facility] , Rheumatoid arthritis (chief complaint) Vitamin D deficiencySe ropositive RAOsteoporos is NOSCounselin [facility] risk medication monitoringCe rvicalgia 3 Lia Alfonso. [facility] [address], [place], [address], [place]. tel:[phone] Referring Provider: Kaden Wang, [facility] [address], [place], [address]. tel:[phone] [facility] , [address], [place], [address], [place] tel:[phone] [facility] , No Information 3 Lia Alfonso. [facility] [address], [place], [address], [place]. tel:[phone] Referring Provider: Kaden Wang, [facility] [address], [place], [address]. tel:[phone] [facility] , [address], [place], [address], [place] tel:[phone] [facility] , No Information 3 Elena Escalona. [facility] [address], [place], [address], [place]. tel:[phone] Referring Provider: Iqra Bonilla, [facility] [address], [place], [address]. tel:[phone] Office/Outpa tient Visit, Est [facility] , [address], [place], [address], [place] tel:[phone] [facility] , Rheumatoid arthritis (chief complaint) Vitamin D deficiencySe ropositive RAOsteoporos is NOSCounselin [facility] risk medication monitoring 3 Lia Alfonso. [facility] [address], [place], [address], [place]. tel:[phone] Referring Provider: Kaden Wang, [facility] [address], [place], [address]. tel:[phone] [facility] , [address], [place], [address], [place] tel:[phone] [facility] , No Information 3 Lia Alfonso. [facility] [address], [place], [address], [place]. tel:[phone] Referring Provider: Kaden Wang, [facility] [address], [place], [address]. tel:[phone] [facility] , [address], [place], [address], [place] tel:[phone] [facility] , No Information 3 Lia Alfonso. [facility] [address], [place], [address], [place]. tel:[phone] Referring Provider: Kaden Wang, [facility] [address], [place], [address]. tel:[phone] Office/Outpa tient Visit, Est [facility] , [address], [place], [address], [place] tel:[phone] Telehealth Rheumatoid arthritis (chief complaint) Vitamin D deficiencySe ropositive RAOsteoporos is NOSCounselin [facility] risk medication monitoring 2 Lia Alfonso. [facility] [address], [place], [address], [place]. tel:[phone] Referring Provider: Kaden Wang, [facility] [address], [place], [address]. tel:[phone] [facility] , [address], [place], [address], [place] tel:[phone] [facility] , No Information 2 Lia Alfonso. [facility] [address], [place], [address], [place]. tel:[phone] Referring Provider: Kaden Wang, [facility] [address], [place], [address]. tel:[phone] [facility] , [address], [place], [address], [place] tel:[phone] [facility] , No Information 2 Lia Alfonso. [facility] [address], [place], [address], [place]. tel:[phone] Referring Provider: Kaden Wang, [facility] [address], [place], [address]. tel:[phone] Office/Outpa tient Visit, Est [facility] , [address], [place], [address], [place] tel:[phone] [facility] , Rheumatoid arthritis (chief complaint) Vitamin D deficiencySe ropositive RAOsteoporos is NOSCounselin [facility] risk medication monitoring 2 Lia Alfonso. [facility] [address], [place], [address], [place]. tel:[phone] Referring Provider: Kaden Wang, [facility] [address], [place], [address]. tel:[phone] [facility] , [address], [place], [address], [place] tel:[phone] [facility] , No Information 2 Lia Alfonso. [facility] [address], [place], [address], [place]. tel:[phone] Referring Provider: Kaden Wang, [facility] [address], [place], [address]. tel:[phone] [facility] , [address], [place], [address], [place] tel:[phone] [facility] , No Information 2 Lia Kaden. [facility] [address], [place], [address], [place]. tel:[phone] Referring Provider: Kaden Wang, [facility] [address], [place], [address]. tel:[phone] [facility] , [address], [place], [address], [place] tel:[phone] [facility] , No Information 2 Lia Kaden. [facility] [address], [place], [address], [place]. tel:[phone] Referring Provider: Kaden Wang, [facility] [address], [place], [address]. tel:[phone] [facility] , [address], [place], [address], [place] tel:[phone] [facility] , No Information 2 Lia Kaden. [facility] [address], [place], [address], [place]. tel:[phone] Referring Provider: Kaden Wang, [facility] [address], [place], [address]. tel:[phone] Office/Outpa tient Visit, Est [facility] , [address], [place], [address], [place] tel:[phone] [facility] , Vitamin D deficiencySe ropositive RAOsteoporos is NOSCounselin [facility] risk medication monitoring 2 Lia Alfonso. [facility] [address], [place], [address], [place]. tel:[phone] Referring Provider: Kaden Wang, [facility] [address], [place], [address]. tel:[phone] [facility] , [address], [place], [address], [place] tel:[phone] [facility] , No Information 2 Lia Alfonso. [facility] [address], [place], [address], [place]. tel:[phone] Referring Provider: Kaden Wang, [facility] [address], [place], [address]. tel:[phone] [facility] , [address], [place], [address], [place] tel:[phone] [facility] , No Information 2 Lia Alfonso. [facility] [address], [place], [address], [place]. tel:[phone] Referring Provider: Kaden Wang, [facility] [address], [place], [address]. tel:[phone] Office/Outpa tient Visit, Est [facility] , [address], [place], [address], [place] tel:[phone] [facility] , Rheumatoid arthritis (chief complaint) Vitamin D deficiencySe ropositive RAOsteoporos is NOSCounselin gHigh risk medication monitoringHy perlipidemia Oct- 2 Lia Alfonso. [facility] [address], [place], [address], [place]. tel:[phone] Referring Provider: Kaden Wang, [facility] [address], [place], [address]. tel:[phone] [facility] [facility] , [address], [place], [address], [place] tel:[phone] [facility] , No Information 2 Lia Alfonso. [facility] [address], [place], [address], [place]. tel:[phone] Referring Provider: Kaden Wang, [facility] [address], [place], [address]. tel:[phone] [facility] , [address], [place], [address], [place] tel:[phone] [facility] , No Information 1 Alfredo Lees. [facility] [address], [place], [address], [place]. tel:[phone] Referring Provider: Nabeel Campbell, [facility] [address], [place], [address]. tel:[phone] Office/Outpa tient Visit, Est [facility] , [address], [place], [address], [place] tel:[phone] [facility] , Rheumatoid arthritis (chief complaint) Vitamin D deficiencySe ropositive RAOsteoporos is NOSCounselin [facility] risk medication monitoring 1 Lia Alfonso. [facility] [address], [place], [address], [place]. tel:[phone] Referring Provider: Kaden Wang, [facility] [address], [place], [address]. tel:[phone] [facility] , [address], [place], [address], [place] tel:[phone] [facility] , No Information 1 Lia Alfonso. [facility] [address], [place], [address], [place]. tel:[phone] Referring Provider: Kaden Wang, [facility] [address], [place], [address]. tel:[phone] [facility] , [address], [place], [address], [place] tel:[phone] [facility] , No Information 1 Lia Alfonso. [facility] [address], [place], [address], [place]. tel:[phone] Referring Provider: Kaden Wang, [facility] [address], [place], [address]. tel:[phone] [facility] , [address], [place], [address], [place] tel:[phone] [facility] , No Information Apr- 1 Lia Alfonso. [facility] [address], [place], [address], [place]. tel:[phone] Referring Provider: Kaden Wang, [facility] [address], [place], [address]. tel:[phone] [facility] , [address], [place], [address], [place] tel:[phone] [facility] , No Information Apr-0 1 Lia Alfonso. [facility] [address], [place], [address], [place]. tel:[phone] Referring Provider: Kaden Wang, [facility] [address], [place], [address]. tel:[phone] Office/Outpa tient Visit, Est [facility] , [address], [place], [address], [place] tel:[phone] [facility] , Rheumatoid arthritis (chief complaint) Vitamin D deficiencySe ropositive RAOsteoporos is NOSCounselin [facility] medication monitoringUT I 1 Lia Alfonso. [facility] [address], [place], [address], [place]. tel:[phone] Referring Provider: Kaden Wang, [facility] [address], [place], [address]. tel:[phone] [facility] , [address], [place], [address], [place] tel:[phone] [facility] , No Information 1 Lia Alfonso. [facility] [address], [place], [address], [place]. tel:[phone] Referring Provider: Kaden Wang, [facility] [address], [place], [address]. tel:[phone] [facility] , [address], [place], [address], [place] tel:[phone] [facility] , No Information 1 Lia Alfonso. [facility] [address], [place], [address], [place]. tel:[phone] Referring Provider: Kaden Wang, [facility] [address], [place], [address]. tel:[phone] [facility] , [address], [place], [address], [place] tel:[phone] [facility] , No Information 1 Lia Alfonso. [facility] [address], [place], [address], [place]. tel:[phone] Referring Provider: Kaden Wang, [facility] [address], [place], [address]. tel:[phone] Office/Outpa tient Visit, Est [facility] , [address], [place], [address], [place] tel:[phone] [facility] , Rheumatoid arthritis (chief complaint) Vitamin D deficiencySe ropositive RAOsteoporos is NOSCounselin [facility] medication monitoringSO B 1 Lia Alfonso. [facility] [address], [place], [address], [place]. tel:[phone] Referring Provider: Kaden Wang, [facility] [address], [place], [address]. tel:[phone] [facility] , [address], [place], [address], [place] tel:[phone] [facility] , No Information 1 Lia Alfonso. [facility] [address], [place], [address], [place]. tel:[phone] Referring Provider: Kaden Wang, [facility] [address], [place], [address]. tel:[phone] [facility] , [address], [place], [address], [place] tel:[phone] [facility] , No Information 1 Lia Alfonso. [facility] [address], [place], [address], [place]. tel:[phone] Referring Provider: Kaden Wang, [facility] [address], [place], [address]. tel:[phone] [facility] , [address], [place], [address], [place] tel:[phone] [facility] , No Information 1 Lia Alfonso. [facility] [address], [place], [address], [place]. tel:[phone] Referring Provider: Kaden Wang, [facility] [address], [place], [address]. tel:[phone] Office/Outpa tient Visit, Est [facility] , [address], [place], [address], [place] tel:[phone] [facility] , Rheumatoid arthritis (chief complaint) Vitamin D deficiencySe ropositive RACounseling Osteoporosis NOSHigh risk medication monitoring Lia Alfonso. [facility] [address], [place], [address], [place]. tel:[phone] Referring Provider: Kaden Wang, [facility] [address], [place], [address]. tel:[phone] Office/Outpa tient Visit, Est [facility] , [address], [place], [address], [place] tel:[phone] [facility] , Rheumatoid arthritis (chief complaint) Vitamin D deficiencySe ropositive RAOsteoporos is NOSHigh risk medication monitoringCo unseling Jul- 0 Lia Alfonso. [facility] [address], [place], [address], [place]. tel:[phone] Referring Provider: Kaden Wang, [facility] [address], [place], [address]. tel:[phone] Office/Outpa tient Visit, Est [facility] , [address], [place], [address], [place] tel:[phone] [facility] , Rheumatoid arthritis (chief complaint) Vitamin D deficiencySe ropositive RAPlantar fasciitisOst eoporosis NOSHigh risk medication monitoring Mar- 0 Lia Alfonso. [facility] [address], [place], [address], [place]. tel:[phone] Referring Provider: Kaden Wang, [facility] [address], [place], [address]. tel:[phone] Office/Outpa tient Visit, Est [facility] , [address], [place], [address], [place] tel:[phone] [facility] , Rheumatoid arthritis (chief complaint) Vitamin D deficiencySe ropositive RAOsteoporos is NOSHigh risk medication monitoringPl della fasciitis Abner- 0 Lia Alfonso. [facility] [address], [place], [address], [place]. tel:[phone] Referring Provider: Kaden Wang, [facility] [address], [place], [address]. tel:[phone] Office/Outpa tient Visit, Est [facility] , [address], [place], [address], [place] tel:[phone] Telehealth Rheumatoid arthritis (chief complaint) Vitamin D deficiencySe ropositive RAOsteoporos is NOSHigh risk medication monitoring Nov- 0 Lia Alfonso. [facility] [address], [place], [address], [place]. tel:[phone] Referring Provider: Kaden Wang, [facility] [address], [place], [address]. tel:[phone] Office/Outpa tient Visit, Est [facility] , [address], [place], [address], [place] tel:[phone] [facility] , Rheumatoid arthritis (chief complaint) Vitamin D deficiencySe ropositive RAOsteoporos is NOSHigh risk medication monitoring 201 9 Lia Alfonso. [facility] [address], [place], [address], [place]. tel:[phone] Referring Provider: Kaden Wang, [facility] [address], [place], [address]. tel:[phone] Office/Outpa tient Visit, Est [facility] , [address], [place], [address], [place] tel:[phone] [facility] , Rheumatoid arthritis (chief complaint) Vitamin D deficiencySe ropositive RAOsteoporos is NOSHigh risk medication monitoring 201 9 Lia Alfonso. [facility] [address], [place], [address], [place]. tel:[phone] Referring Provider: Kaden Wang, [facility] [address], [place], [address]. tel:[phone] Office/Outpa tient Visit, Est [facility] , [address], [place], [address], [place] tel:[phone] [facility] , Rheumatoid arthritis (chief complaint) Vitamin D deficiencySe ropositive RAOsteoporos is NOSHigh risk medication monitoring 9 Lia Alfonso. [facility] [address], [place], [address], [place]. tel:[phone] Referring Provider: Kaden Wang, [facility] [address], [place], [address]. tel:[phone] Office/Outpa tient Visit, Est [facility] , [address], [place], [address], [place] tel:[phone] [facility] , Rheumatoid arthritis (chief complaint) Vitamin D deficiencySe ropositive RAOsteoporos is NOSHigh risk medication monitoring 8 Lia Alfonso. [facility] [address], [place], [address], [place]. tel:[phone] Referring Provider: Kaden Wang, [facility] [address], [place], [address]. tel:[phone] Office/Outpa tient Visit, Est [facility] , [address], [place], [address], [place] tel:[phone] [facility] , Rheumatoid arthritis (chief complaint) Vitamin D deficiencySe ropositive RAOsteoporos is NOSHigh risk medication monitoring 8 Lia Alfonso. [facility] [address], [place], [address], [place]. tel:[phone] Referring Provider: Kaden Wang, [facility] [address], [place], [address]. tel:[phone] Office/Outpa tient Visit, Est [facility] , [address], [place], [address], [place] tel:[phone] [facility] , Rheumatoid arthritis (chief complaint) Vitamin D deficiencySe ropositive RAOsteoporos is NOSHigh risk medication monitoring 8 Lia Alfonso. [facility] [address], [place], [address], [place]. tel:[phone] Referring Provider: Kaden Wang, [facility] [address], [place], [address]. tel:[phone] Office/Outpa tient Visit, Est [facility] , [address], [place], [address], [place] tel:[phone] [facility] , Rheumatoid arthritis (chief complaint) Vitamin D deficiencySe ropositive RAOsteoporos is NOSHigh risk medication monitoring Lia Alfonso. [facility] [address], [place], [address], [place]. tel:[phone] Referring Provider: Kaden Wang, [facility] [address], [place], [address]. tel:[phone] Office/Outpa tient Visit, Est [facility] , [address], [place], [address], [place] tel:[phone] [facility] , Rheumatoid arthritis (chief complaint) Vitamin D deficiencySe ropositive RAPain in right hipOsteoporo sis NOSHigh risk medication monitoring Lia Alfonso. [facility] [address], [place], [address], [place]. tel:[phone] Referring Provider: Kaden Wang, [facility] [address], [place], [address]. tel:[phone] Office/Outpa tient Visit, Est [facility] , [address], [place], [address], [place] tel:[phone] [facility] , Rheumatoid arthritis (chief complaint) Vitamin D deficiencySe ropositive RAPain in right hipOsteoporo sis NOSHigh risk medication monitoring 7 [facility] Kaden. [facility] [address], [place], [address], [place]. tel:[phone] Referring Provider: Kaden Wang, [facility] [address], [place], [address]. tel:[phone] Office/Outpa tient Visit, Est [facility] , [address], [place], [address], [place] tel:[phone] [facility] , Rheumatoid arthritis (chief complaint) Seropositive RAOsteoporos is NOSHigh risk medication monitoringVi tamin D deficiencyPa in in right hip Sep-0 6 Liajosue Barrowad. [facility] [address], [place], [address], [place]. tel:[phone] Referring Provider: Kaden Wang, [facility] [address], [place], [address]. tel:[phone] Office/Outpa tient Visit, Est [facility] , [address], [place], [address], [place] tel:[phone] [facility] , Rheumatoid arthritis (chief complaint) Seropositive RAOsteoporos is NOSHigh risk medication monitoringVi tamin D deficiency December 6 [facility] Kaden. [facility] [address], [place], [address], [place]. tel:[phone] Referring Provider: Kaden Wang, [facility] [address], [place], [address]. tel:[phone] Office/Outpa tient Visit, Est [facility] , [address], [place], [address], [place] tel:[phone] [facility] , Seropositive RAOsteoporos is NOSHigh risk medication monitoringVi tamin D deficiencyEn larged lymph nodes, unspecified 6 [facility] Kaden. [facility] [address], [place], [address], [place]. tel:[phone] Referring Provider: Kaden Wang, [facility] [address], [place], [address]. tel:[phone] [facility] , [address], [place], [address], [place] tel:[phone] [facility] , Osteoporosis NOS 6 [facility] Kaden. [facility] [address], [place], [address], [place]. tel:[phone] Referring Provider: Kaden Wang, [facility] [address], [place], [address]. tel:[phone] Office/Outpa tient Visit, Est [facility] , [address], [place], [address], [place] tel:[phone] [facility] , Rheumatoid arthritis (chief complaint) Unspecified vitamin d deficiencyRh eumatoid ArthritisSen ile osteoporosis Lymphadenopa thyTherapeut ic Drug MonitoringKn ee pain Sep-2 5 Lia Alfonso. [facility] [address], [place], [address], [place]. tel:[phone] Referring Provider: Kaden Wang, [facility] [address], [place], [address]. tel:[phone] Office/Outpa tient Visit, Est [facility] , [address], [place], [address], [place] tel:[phone] [facility] , Rheumatoid arthritis (chief complaint) Unspecified vitamin d deficiencyRh eumatoid ArthritisSen ile osteoporosis Therapeutic Drug MonitoringLy mphadenopath y Feb- 5 Lia Alfonso. [facility] [address], [place], [address], [place]. tel:[phone] Referring Provider: Kaden Wang, [facility] [address], [place], [address]. tel:[phone] Office/Outpa tient Visit, Est [facility] , [address], [place], [address], [place] tel:[phone] [facility] , Rheumatoid arthritis (chief complaint) Rheumatoid ArthritisSen ile osteoporosis Therapeutic Drug MonitoringUn specified vitamin d deficiency Oct-0 5 Lia Alfonso. [facility] [address], [place], [address], [place]. tel:[phone] Referring Provider: Kaden Wang, [facility] [address], [place], [address]. tel:[phone] Office/Outpa tient Visit, Est [facility] , [address], [place], [address], [place] tel:[phone] [facility] , Rheumatoid Arthritis (chief complaint) Rheumatoid ArthritisSen ile osteoporosis Therapeutic Drug Monitoring 4 Lia Alfonso. [facility] [address], [place], [address], [place]. tel:[phone] Referring Provider: Kaden Wang, [facility] [address], [place], [address]. tel:[phone] Office/Outpa tient Visit, Est [facility] , [address], [place], [address], [place] tel:[phone] [facility] , Rheumatoid Arthritis (chief complaint) Rheumatoid ArthritisSen ile osteoporosis Therapeutic Drug MonitoringUn specified vitamin d deficiency 4 Lia Alfonso. [facility] [address], [place], [address], [place]. tel:[phone] Referring Provider: Kaden Wang, [facility] [address], [place], [address]. tel:[phone] Office/Outpa tient Visit, Est [facility] , [address], [place], [address], [place] tel:[phone] [facility] , Rheumatoid Arthritis (chief complaint) Rheumatoid ArthritisSen ile osteoporosis Therapeutic Drug MonitoringUn specified vitamin d deficiencyDi zziness 4 Lia Alfonso. [facility] [address], [place], [address], [place]. tel:[phone] Referring Provider: Kaden Wang, [facility] [address], [place], [address]. tel:[phone] Office/Outpa tient Visit, Est [facility] , [address], [place], [address], [place] tel:[phone] [facility] , Rheumatoid Arthritis (chief complaint) Rheumatoid ArthritisSen ile osteoporosis Therapeutic Drug Monitoring 3 Lia Alfonso. [facility] [address], [place], [address], [place]. tel:[phone] Referring Provider: Kaden Wang, [facility] [address], [place], [address]. tel:[phone] [facility] , [address], [place], [address], [place] tel:[phone] [facility] , No Information 3 Lia Alfonso. [facility] [address], [place], [address], [place]. tel:[phone] Referring Provider: Kaden Wang, [facility] [address], [place], [address]. tel:[phone] Office/Outpa tient Visit, New [facility] , [address], [place], [address], [place] tel:[phone] [facility] , Rheumatoid Arthritis (chief complaint) Rheumatoid ArthritisVen tricular TachycardiaH ypothyroidis mGERDTherape utic Drug MonitoringSe nile osteoporosis 3 Lia Alfonso. [facility] [address], [place], [address], [place]. tel:[phone] Referring Provider: Kaden Wang, [facility] [address], [place], [address]. tel:[phone] [facility] , [address], [place], [address], [place] tel:[phone] [facility] , No Information 3 Lia Alfonso. [facility] [address], [place], [address], [place]. tel:[phone] Family History Family Member Type Diagnosis Age At Onset cousin Problem (finding) sarcoidosis cousin Problem (finding) Systemic lupus erythema tosis Immunizations Vaccine Date Status Comments COVID-19 [facility] administered S ource: Source Unspecified Payers Payer name Insurance type Covered democrat ID Authornenita luevano(s) Medicare MB [id number] [facility] [id number] Social History Type Description Quantity Date Captured Comments Alcohol Use Details Unknown Caffeine Use Details Unknown Tobacco Use Status No Information Smoking Status No Information Sex Female Vital Signs Date / Time: Height Weight BMI Pulse Rate Blood Pressure Temperature Respiratory Rate Body Surface Area Head Circumference Head Circ. Percentile Wt./Dougie. Percentile BMI percentile Pulse Ox Inhaled Ox 12:53 PM 58.510 kg (129.00 lbs) 12:57 PM 58.636 kg (129.00 lbs) 84 /min 136/64 mm[Hg] 97.40 F 3:02 PM 58.636 kg (129.00 lbs) 80 /min 96/60 mm[Hg] Chief Complaint And Reason For Visit No Information Reason For Referral Reason For Referral No Information Plan Of Treatment Date Type Action Status Referral Ordered: Chest X-Ray chest ordered Referral Ordered: Mri Joint Upr Extrem W/Dye Right hand ordered Referral Ordered: Mri Joint Upr Extrem W/Dye Right wrist ordered Appointment Dianna Mays BOOKED Appointment Dianna Mays BOOKED Appointment Dianna Mays BOOKED Appointment Dianna Mays BOOKED Future Order: Radiology Order Ch est X-Ray chest ([id number]), Body Site: chest, Ordered on: Ordered Future Order: Radiology Order Mr i Joint Upr Extrem W/Dye Right wrist ([id number]), Body Site: wrist, Ordered on: Ordered Future Order: Radiology Order Mr i Joint Upr Extrem W/Dye Right hand ([id number]), Body Site: hand, Ordered on: Ordered History Of Present Illness Encounter Date Complaint History Of Prese nt Illness Rheumatoid arthritis Rheumatoid arthritis Rheumatoid arthritis Rheumatoid arthritis Rheumatoid arthritis Rheumatoid arthritis Rheumatoid arthritis Rheumatoid arthritis Rheumatoid arthritis Rheumatoid arthritis Rheumatoid arthritis Rheumatoid arthritis Rheumatoid arthritis Rheumatoid arthritis Rheumatoid arthritis Rheumatoid arthritis Rheumatoid arthritis Rheumatoid arthritis Rheumatoid arthritis Rheumatoid arthritis Rheumatoid arthritis Rheumatoid arthritis Rheumatoid arthritis Rheumatoid arthritis Rheumatoid arthritis Rheumatoid arthritis Rheumatoid arthritis Rheumatoid arthritis Rheumatoid arthritis Functional Status Date Functional Assessmen t No Information Instructions Date Instruction Additional Infor mation No Information Assessments Type Assessment Date No Information Patient Care Teams Name Effective Dates (start - stop) Status Members No Information
--- OUTSIDE RECORDS SUMMARY | 2024-02-09 17:05 | XMS_ITS | Clinical Summary ---
Author Organization [facility] Address [place], [place] [address] Care Team Providers Care Venetian Blind Maker Name Role Phone Yvonne Regan MD Primary Care Provider + Allergies Active Allergy Reactions Criticality Noted Date Comments Epinephrine Hypotension Medium 01/22/2009 Sulfamethoxazole-Trimethoprim Diarrhea Low 2015 Medications Medication Sig Dispensed Refills Start Date End Date Status FOLIC ACID 1 MG TAB Take 1 mg by mouth once daily. Active methotrexate, PF, 25 mg/mL injection Inject 15 mg intramuscular/intr avenous every Monday. 0 08/15/2016 Active carboxymethylcellulo se 0.5% (REFRESH TEARS) 0.5 % drop ophthalmic drops Place 1 Drop into both eyes 2 times daily if needed for Dry Eyes. 0 08/15/2016 Active cholecalciferol (VITAMIN D-3) 2,000 unit capsule Take 4,000 units by mouth once daily. 0 02/14/2018 Active multivitamin (MVI) tablet Take 1 tablet by mouth once daily. 0 05/14/2020 Active pseudoephedrine (SUDAFED) 30 mg tablet as needed 09/11/2020 Active inulin (Fiber Gummies) 2 gram chew Chew by mouth. 0 12/31/2021 Active Potassium 99 mg disintegrating tablet Take by mouth. 0 12/31/2021 Active acyclovir (ZOVIRAX) 5 % ointment 03/21/2022 Active inFLIXimab (REMICADE) 100 mg injection Inject 400 mg intravenous every 2 months. 20 mL 03/22/2022 Active BD SafetyGlide 1 mL 27 x 1/2 syrg 04/02/2022 Active fluticasone (50 mcg per actuation) nasal solution (FLONASE) Inhale 2 Sprays to both nostrils once daily. 16 g 05/11/2022 Active valACYclovir (VALTREX) 1 gram tabletIndications:Co ld sore Take 2 tabs at onset; repeat in 12 hours. Repeat for each outbreak 16 Tablet 1 02/10/2023 Active levothyroxine (Synthroid) 50 mcg tabletIndications:Ot her specified hypothyroidism TAKE 1 TABLET BEFORE BREAKFAST 90 Tablet 2 03/16/2023 Active metoprolol tartrate (LOPRESSOR) 25 mg tabletIndications:Pa lpitation Take 1-2 tablets once daily as needed for palpitations 60 Tablet 3 01/08/2024 Active cephalexin (KEFLEX) 500 mg capsuleIndications:U rinary tract infection symptoms Take 1 Capsule (500 mg) by mouth three times daily for 7 days. 21 Capsule 02/05/2024 4 Active Active Problems Problem Noted Date Diagnosed Date VAIN I (vaginal intraepithelial neoplasia grade I) 12/11/2023 Overview: 07/2002 Hysterectomy 08/2011 Vaginal Pap: ASCUS/HPV+ 09/2011 [place]: VAIN I 03/2012 Vaginal Pap: NIL 04/2013 Vaginal Pap: NIL 08/2016 Vaginal Pap: NIL 08/2017 Vaginal Pap: NIL 11/2023 Vaginal Pap: NIL/HPV Negative Paroxysmal ventricular tachycardia 10/13/2023 Paroxysmal SVT (supraventricular tachycardia) Vertigo 08/17/2016 Overview: Intermittent. Complete work up negative for any treatable etiology Sensorineural hearing loss, asymmetrical 014 History of hysterectomy 09/02/2013 Overview: Plan: Cervical cancer screening not indicated ACP (advance care planning) 11/28/2011 Overview: Patient has identified Health Care Agent(s): No - Pt has designated spouse Matt ([phone] or c: [phone]) as the primary contact. Add Health Care Agents: No Patient has Advance Care Plan Documents (Health Care Directive, POLST): No, Health Care Packet given to patient. Patient has identified Specific Treatment Preferences: No Specific limits to treatment preferences NOT identified: ASSUME FULL TREATMENT. Rheumatoid arthritis(714.0) 01/22/2009 Overview: POS JESSICA. On MTX and Enbrel. Sees Dr. 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 06/16/10. Due for repeat in 5 years History of COVID-19 01/22/2009 Overview: Early 2021. Non severe infection Raynaud's syndrome 01/22/2009 Esophageal reflux 01/22/2009 Overview: EGD 09/2016 was negative aside from some redness to the stomach lining Resolved Problems Problem Noted Date Diagnosed Date Resolved Date Presbyopia 04/18/2022 04/18/2022 History of COVID-19 08/25/2021 12/22/19 22 Overview: 08/2021 Chest pain 09/15/2020 08/25/2021 Chest pain 11/28/2011 02/06/2023 Overview: Normal stress echocardiogram 01/2010 Coronary MR calcium score 0 01/2012 Encounters Date Type Department Care Team Description 02/09/2024 Telephone [facility] [address] [place] [address] Alla Rizzo PA 02/09/2024 Nurse Triage [facility] [address] [place] [address] Yvonne Regan MD Flank Pain (Right) 02/05/2024 8:10 AM CDT Office Visit [facility] [address] [place] [address] Eleni Brock, ROSITA Urinary Problem 02/05/2024 Travel 01/08/2024 2:30 PM CDT Office Visit [facility] [address] [facility] [address] [place] [address] Kurt Regan MD CV Electrophysiology Est (Follow up, pt had increase in arrhythmias in October, had to take extra metoprolol multiple times) 01/08/2024 Travel 01/05/2024 Travel 12/13/2023 Orders Only [facility] Scanner 1 scan: (1-Ord) [facility], RT KNEE INJ, 12/13/2023 12/11/2023 Telephone [facility] [[email or web address] [address] [facility] [address] [place] [address] June Kyle, ROSITA Pap Plan 11/23/2023 2:20 PM CDT Office Visit [facility] [[email or web address] [address] [facility] [address] [place] [address] June Kyle, ROSITA Community Health Education Coordinator Exam (Vaginal sore) 11/23/2023 Travel from Last 3 Months Immunizations Name Administration Dates Next Due AMB INFLUENZA, IIV4 (AGE=>6M OS) MDV (Flu Clinic Only) 04/16/2020 COVID-19 vaccine (Chucho-J& J) PF, MDV 10/18/2020,10/18/2020 COVID-19 vaccine (Moderna 100mcg/0.5mL) PF, MDV 01/05/2022,06/22/2021 Influenza A (H1N1), Inactivated 07/22/2009 Influenza A (H1N1), Inactiva jenn (Age >=3 Years) 07/22/2009 Influenza Virus, Unspecified 04/12/2011,05/14/20 08 Influenza, High-dose Inactivated 04/18/2019,04/07,05/16/2017 Influenza, High-dose Quadriv alent Inactivated 04/13/2022,04/17/2021,04/17/2020 Influenza, IIV3 (Age 6-35 mos) 04/12/2011 Influenza, IIV3 (Age >=3 years) 04/19/20 13,04/13/2012,04/12/2011,2009,05/07/2008,06/04/2007 Influenza, IIV4 04/07/2016, 5,03/26/2015,2013 Pneumococcal Poly,23-Valent (Pneumovax) 08/07/2002 Pneumococcal conj 13-Valent (Prevnar 13) 04/18/2019 Td (Age >=7 Years) 04/26/2010,08/07/1999 Tdap 06/27/2015,05/29/2012 Zoster (Shingrix-RZV, recombinant) 10/29/2018, Family History Medical History Relation Name Comments Diabetes Brother Lui pre dm Good Health Brother Lui Good Health Daughter Elba Dementia Father Diabetes Father diet controlled Dementia Maternal Grandmother Dementia Mother severe Thyroid Disease Mother Cancer-breast Paternal Aunt Dementia Paternal Grandmother Cancer-colon Son 1 Dennys polyps Relation Name Status Comments Brother Lui Alive Daughter Elba Alive Father Maternal Grandmother Mother (Age 95) fx hip Paternal Aunt Paternal Grandmother Son 1 Dennys Alive Son 2 Sixto Alive Son 3 DJ Alive Social History Tobacco Use Types Packs/Day Years Used Date Smoking Tobacco: Former Cigarettes 1 16 0 08/07/1972 - 08/07/1988 Smokeless Tobacco: Never Tobacco Cessation:Counseling Given: Yes Comments:quit in 1988 Alcohol Use Standard Drinks/Week Comments No 0 (1 standard drink = 0.6 oz pur e alcohol) none PHQ-2 Answer Date Recorded PHQ-2 TOTAL SCORE 0 02/06/2023 Social Connections Answer Date Recorded Frequency of Communication with Friends and Fami ly Not on file 02/08/2024 Financial Resource Strain Answer Date R ecorded Difficulty of Paying Living Expenses 3 02/06/2023 Difficulty of Paying Living Expenses Not on file 02/06/2023 Food Insecurity Answer Date Recorded Worried About Running Out of Food in the Last Ye ar 1 02/06/2023 Transportation Needs Answer Date Record ed Lack of Transportation (Medical) 1 02/06/2023 Housing Stability Answer Date Recorded Unable to Pay for Housing in the Last Year 1 02/06/2023 Sex and Gender Information Value Date Recorded Sex Assigned at Not on file Gender Identity Not on file Sexual Orientation Not on file Obstetrics History Para Term AB IAB SAB Ectopic Multiple Livin g Live Births 5 4 4 1 1 4 Date Outcome GA Total Labor Labor/2nd/3rd Weight Sex Type Anes PTL Ofelia A1 A5 Name Clin Term Term Term Term SAB Last Filed Vital Signs Vital Sign Reading Time Taken Comments Blood Pressure 163/73 02/05/2024 8:24 AM CDT Pulse 68 02/05/2024 8:24 AM CDT Temperature 36.2 ??C (97.1 ??F) 02/05/2024 8:24 AM CD T Respiratory Rate 14 02/05/2024 8:24 AM CDT Oxygen Saturation 98% 02/05/2024 8:24 AM CDT Inhaled Oxygen Concentration - - Weight 59 kg (130 lb) 02/05/2024 8:24 AM CDT Height 155.6 cm (5' 1.25) 01/08/2024 2:26 PM CD T Body Mass Index 24.36 01/08/2024 2:26 PM CDT Plan of Treatment Health Maintenance Due Date Last Done Comments COVID-19 vaccine series ( season) 2023 01/05/2022, 06/22/2021, 10/18/2020, Additional history exists Medicare Wellness for age 65+ 02/07/2024, 10/14/2021, 05/14/2020, Additional history exists Depression screening for age 12+ 02/11/2024 02/10/2023, 02/06/2023, 10/14/2021, Additional history exists Influenza for age 65+ 04/07/2024 04/13/2022 , 04/17/2021, 04/17/2020, Additional history exists BMI (ht and wt on same day) for age 18+ 01/07/2025 01/08/2024, 10/23/2023, 02/06/2023, Additional history exists Tetanus booster 06/27/2025 06/27/2015, 05/08, 04/26/2010, Additional history exists Lipids for age 45-75 08/24/2026 08/24/2021, 09/16/2020, 04/09/2020, Additional history exists Colonoscopy through age 75 09/11/202709/11, 08/18/2015, 06/07/2015 (Completed outside of [facility]), Additional history exists DEXA/DXA scan for age 65+ Completed 04/23/2013, Hepatitis C screening for ag e 18-79 Completed 09/02/2013 Tdap Completed 06/27/2015, 05/29/2012 Zoster (shingles) series for age 50+ Completed 10/29/2018, 08/12/2018 Procedures Procedure Name Priority Date/Time Associated Diagnosis Comments URINALYSIS MICROSCOPIC STAT 02/05/2024 8:20 AM CDT Urinary tract infection symptoms URINE CULTURE Routine 02/05/2024 8:20 AM CDT Urinary tract infection symptoms UA W/ SEDIMENT EXAM REFLEXED PER CRITERIA STAT 02/05/2024 8:20 AM CDT Urinary tract infection symptoms EKG 12 LEAD Routine 01/08/2024 2:19 PM CDT Paroxysmal SVT (supraventricular tachycardia) (HC) Paroxysmal ventricular tachycardia (HC) SCAN-OPERATIVE/PROC EDURE REPORT 12/13/2023 12:00 AM CDT DIESEL MAINTENANCE ELECTRICIAN THIN PREP PAP DIAGNOSTIC IMAGED Routine 11/23/2023 2:59 PM CDT VAIN I (vaginal intraepithelial neoplasia grade I) HPV THIN PREP Routine 11/23/2023 2:59 PM CDT VAIN I (vaginal intraepithelial neoplasia grade I) LIPID PANEL W REFLEX MEASURED LDL Routine 08/24/2021 10:57 AM AUTOMOTIVE INTERNET SALES MANAGER Screening for hyperlipidemia SCAN-COLONOSCOPY 09/11/2020 7:30 AM AUTOMOTIVE INTERNET SALES MANAGER ANTI HCV Routine 09/02/2013 4:21 PM AUTOMOTIVE INTERNET SALES MANAGER Need for hepatitis C screening test XR DXA BONE DENSITY 2 SITES AXIAL Routine 02/01/2012 1:26 PM CDT Postmenopausal from Last 3 Months or Most Recently Relevant to Health Maintenance Results * (ABNORMAL) URINALYSIS MICROSCOPIC (02/05/2024 8:20 AM CDT) RBC 0-2 0-2, None Seen /HPF 02/05/2024 6:37 PM CDT [facility] WBC 6-10(A) 0-2, 3-5, None Seen /HPF 02/05/2024 6:37 PM CDT [facility] BACTERIA None Seen None Seen, Rare, Few Bacteria/ HPF 02/05/2024 6:37 PM CDT [facility] EPITHELIAL CELLS None Seen None Seen, Few Epi/HPF 02/05/2024 6:37 PM CDT [facility] HYALINE CASTS 0-2 0-2, 3-5 /LPF 02/05/2024 6:37 PM CDT [facility] Urine URINE SPECIMEN / Unknown Non-Blood / Unknown 02/05/2024 8:20 AM CDT 02/05/2024 8:21 AM CDT Eleni Brock NP URINE Performing Organization Address City/[facility]/ZIP Co de Phone Number [facility] [address] [place] [id number] * URINE CULTURE [33378.2] (02/05/2024 8:20 AM CDT) CULTURE <10,000 CFU/mL multiple organisms 02/06/2024 4:14 PM CDT [facility] Urine URINE SPECIMEN / Unknown Non-Blood / Unknown 02/05/2024 8:20 AM CDT 02/05/2024 8:21 AM CDT Eleni Brock NP MICROBIOLOGY [facility] [address] [place] [address], [place] * (ABNORMAL) UA W/ SEDIMENT EXAM REFLEXED PER CRITERIA (UA w/ reflex micro if positive) [06331.2] (02/05/2024 8:20 AM CDT) COLOR Yellow Yellow Color 02/05/2024 8:28 AM CDT [facility] CLARITY Clear Clear Clarity 02/05/2024 8:28 AM T [facility] SPECIFIC GRAVITY,URINE 1.010 1.010, 1.015, 1.020, 1.025 02/05/2024 8:28 AM T [facility] PH,URINE 6.5 6.0, 7.0, 8.0, 5.5, 6.5, 7.5, 8.5 02/05/2024 8:28 AM T [facility] UROBILINOGEN, QUALITATIVE Normal Normal EU/dl 02/05/2024 8:28 AM T [facility] PROTEIN, URINE Negative Negative mg/dL 02/05/2024 8:28 AM T [facility] GLUCOSE, URINE Negative Negative mg/dL 02/05/2024 8:28 AM T [facility] KETONES,URINE Negative Negative mg/dL 02/05/2024 8:28 AM T [facility] BILIRUBIN,URI NE Negative Negative 02/05/2024 8:28 AM T [facility] OCCULT BLOOD,URINE Trace(A) Negative 02/05/2024 8:28 AM T [facility] NITRITE Negative Negative 02/05/2024 8:28 AM T [facility] LEUKOCYTE ESTERASE Small(A) Negative 02/05/2024 8:28 AM T [facility] Urine URINE SPECIMEN / Unknown Non-Blood / Unknown 02/05/2024 8:20 AM CDT 02/05/2024 8:21 AM CDT Eleni Brock NP URINE [facility] [address] [place] [address], * EKG 12 LEAD (01/08/2024 2:19 PM CDT) Interpretation Normal sinus rhythm Possible Left atrial enlargement Minimal voltage criteria for LVH, may be normal variant ( Sokolow-Raymond ) Septal infarct , age undetermined Marked ST abnormality, possible inferior subendocardial injury Abnormal ECG When compared with ECG of 22-JUL-2023 14:05, Septal infarct is now Present ST now depressed in Inferior leads T wave inversion more evident in Inferior leads Ventricular Rate 76 BPM Atrial Rate 76 BPM P-R Interval 134 ms QRS Duration 76 ms QT 416 ms QTc 468 ms P Alpha 72 degrees R Alpha 68 degrees T Alpha -104 degrees 01/08/2024 2:19 PM CDT 01/18/2024 12:52 PM CDT Kurt Regan MD EKG ORD * SCAN-OPERATIVE/PROCEDURE REPORT (12/13/2023 12:00 AM CDT) Scanner OTHER * DIESEL MAINTENANCE ELECTRICIAN THIN PREP PAP DIAGNOSTIC IMAGED (11/23/2023 2:59 PM CDT) Case Report Gynecologic Cytology Report ? Case: [id number] ? Authorizing Provider: ??June Kyle NP ?Collected: ? 11/23/2023 1459 ? Ordering Location: ? [facility] ? Received: ?11/23/2023 1459 ? Clinic ? First Screen: ?Kisah Faye ? Specimen: ?DIESEL MAINTENANCE ELECTRICIAN ThinPrep Vial Diagnostic, Cervical ? 12/07/2023 1:39 PM CDT [facility] INTERPRETATION/ RESULT NEGATIVE FOR INTRAEPITHELIAL LESION OR MALIGNANCY (NIL) (none) 12/07/2023 1:39 PM CDT [facility] IMEN ADEQUACY Satisfactory for evaluation No endocervical component seen 12/07/2023 1:39 PM CDT [facility] HPV REQUEST HPV and PAP 12/07/2023 1:39 PM CDT [facility] Date of LMP > 10 years 12/07/2023 1:39 PM CDT [facility]AL [facility] Last Pap Date 09/06/17 12/07/2023 1:39 PM CDT [facility] Last Pap Result NIL 1:39 PM CDT [facility] Abnormal Pap or [place] Bx in last 5 years No 12/07/2023 1:39 PM CDT [facility] Menstrual Status Postmenopausal 12/07/2023 1:39 PM CDT [facility] [place] Bx Done Today No 12/07/2023 1:39 PM CDT [facility] Additional Information Hx Vain 12/07/2023 1:39 PM CDT [facility] Comment: Cytology is screened at [facility] - [address], [place] [address] and [facility] - [address], [place] [address] and [facility] - [address] [place] [address] Interpreted at [facility] - [address], [place] [address] Automated Review Successful 12/07/2023 1:39 PM CDT [facility] Comment:Specimen processed s uccessfully by automated interior design director device, ThinPrep Imaging System, [employer] ANCILLARY TESTING DIESEL MAINTENANCE ELECTRICIAN HPV Ordered, Please see separate report 12/07/2023 1:39 PM CDT [facility] Note The pap test is a screening technique, not a diagnostic procedure. It is used primarily to screen for squamous cancers and precursor lesions. Published studies have shown that it is subject to both false negative and false positive results. The pap test should not be used as the sole means to diagnose or exclude pre-malignant and malignant lesions. 12/07/2023 1:39 PM CDT [facility] Other (Cervical) Non-Blood / Unknown 11/23/2023 2:59 PM CDT 11/23/2023 2:59 PM CDT June Kyle NP PATHOLOGY/CYTOLOGY [facility] [address] [place] [address], * HPV HIGH RISK (11/23/2023 2:59 PM CDT) TYPE 16 Negative Negative 11/28/2023 1:47 PM CDT [facility] TYPE 18 Negative Negative 11/28/2023 1:47 PM CDT [facility] OTHER HIGH RISK TYPES Negative Negative 11/28/2023 1:47 PM CDT [facility] Other (Cervical) Non-Blood / Unknown 11/23/2023 2:59 PM CDT 11/24/2023 10:44 AM CDT Narrative [facility] - 11/28/2023 1:47 PM CDT HPV types 16, 18, 31, 33, 35, 39, 45, 51, 52, 56, 58, 59, 66 and 68 DNA were undetectable or below the pre-set threshold. Methodology: [employer] Kala 4800 HPV Test June Kyle NP MICROBIOLOGY [facility] [address] [place] [address], * (ABNORMAL) LIPID PANEL W REFLEX MEASURED LDL (08/24/2021 10:57 AM AUTOMOTIVE INTERNET SALES MANAGER) CHOLESTEROL,TOTAL 282(H) 100 - 199 mg/dL 08/24/2021 9:[address] [facility] TRIGLYCERIDES 155(H) <150 mg/dL 08/24/2021 9:[address] [facility] HDL CHOLESTEROL 48 >40 mg/dL 9:37 PM [facility] NON-HDL CHOLESTEROL 234(H) <145 mg/dl 08/24/2021 9:[address] [facility] CHOL/HDL RATIO 5.88(H) <4.50 08/24/2021 9:[address] [facility] LDL CHOLESTEROL 203(H) <=130 mg/dL 08/24/2021 9:[address] [facility] VLDL CHOLESTEROL 31(H) <=30 mg/dL 08/24/2021 9:37 PM [facility] PROVIDER ORDERED STATUS RANDOM 08/24/2021 9:37 PM [facility] Blood BLOOD SPECIMEN / Unknown Venipuncture / Unknown 08/24/2021 10:57 AM AUTOMOTIVE INTERNET SALES MANAGER 08/24/2021 10:58 AM AUTOMOTIVE INTERNET SALES MANAGER Aliza KIRBY CHEMISTRY [facility] [address] [place] [address], [place] * SCAN-COLONOSCOPY (09/11/2020 7:30 AM AUTOMOTIVE INTERNET SALES MANAGER) Narrative Procedure Note Ab Riley MD - 09/11/2020 6:48 AM CST [facility] [address], [address], [place] [address] Patient Name: Dianna Mays Gender: Female Exam Date: 09/11/2020 Visit Number: [id number] Age: 70 Years Date of : 1950 Attending MD: Ab Riley MD Medical Record#: [id number] Procedure: Colonoscopy Indications: Previous adenomatous polyp(s) Referring MD: Referral Self Primary MD: Yvonne Regan MD Medications: Admitting Medications: 0.9% Normal Saline at TKO Intra Procedure Medications: Patient received monitored anesthesia care. Complications: No immediate complications Procedure: An examination of the heart and lungs was performed and found to be withinacceptable limits. . The patient was therefore deemed a reasonablecandidate for endoscopy and sedation. The risks and benefits of the procedure were explained to the patient.After obtaining informed consent, the patient received monitoredanesthesia care and I passed the scope without difficulty via the rectum to the cecum. The appendiceal orificeand ic valve were identified. The scope was retroflexed during theexamination The quality of the prep was excellent (Miralax/Gatorade/2tablets Bisacodyl/Magnesium Citrate). This was a complete examination throughout the entire colon. Findings: Polyp location: cecum. Quantity: 1. Size: 2 mm. Polyp shape: sessile. Maneuver: polypectomy was performed with a cold biopsy forceps. Removal: complete. Retrieval: complete. Bleeding: none. Diverticulosis. Location: - sigmoid. Size: medium. Quantity:many. Hemorrhoids. External hemorrhoids without bleeding. Remainder of the exam is normal. Impression: Other hemorrhoids Diverticulosis large intestine w/o perforation or abscess w/o bleeding Cecal polyp Preliminary Plan: The patient and their physician will receive a copy of the pathologyreport as well as pathology-based recommendations for future screening orsurveillance. Recommendation Comments: If adenoma, 7 year f/u. If hyperplastic, maytruncate screening. Pathology Results: A: COLON, CECUM, POLYP: 1. Tubular adenoma 2. Negative for high grade dysplasia 3. Per the colonoscopy report: a. Polyp size: 2 mm b. Resection: Complete c. Retrieval: Complete MICROSCOPIC A: Performed Electronically signed by: Timbo Sp[place] [address] Orders Instruction(s)/Education: Instruction/Education Timeframe Assessment Colon Cancer Prevention K63.5 Colon Polyps K63.5 Diverticulosis/Diverticulitis K63.5 Hemorrhoids K63.5 High Fiber Diet K63.5 Final Plan: Return for a colonoscopy in 7 years. We will attempt to contact you at appropriate intervals via U.S. mail. Wemay not be able to find you or contact you at that time, therefore youshould know that the responsibility for following our recommendation restswith you. If you don't hear from us at the time your procedure is due,please contact our office to schedule an appointment. If your contactinformation should change, please contact our office so that we can updateyour record. Additional Comments: I would recommend repeat colonoscopy in 7 years. Be well. _Electronically signed by: Ab Riley MD 09/11/2020 cc: Yvonne Regan MD cc: Referral Self Ab Riley MD OTHER * ANTI HCV [27782.2] (09/02/2013 4:21 PM AUTOMOTIVE INTERNET SALES MANAGER) ANTI HCV Non-reacti ve [facility] Blood specimen (specimen) BLOOD SPECIMEN / Unknown 09/02/2013 4:21 PM AUTOMOTIVE INTERNET SALES MANAGER 09/02/2013 4:16 PM AUTOMOTIVE INTERNET SALES MANAGER Ilene Woodruff MD SEND OUTS [facility] INTERNAL ZIP [id number] [place] [address] * (ABNORMAL) XR DEXA BONE DENSITY 2 SITES (02/01/2012 1:26 PM CDT) Anatomical Region Laterality Modality Spine, HIPS, HIPL, HIPR Bone Den sitometry Narrative 02/12/2012 7:44 PM CDT ?? Bone Density Interpretation Is scan interpretable? Spine yes Hip yes ?? Indication for scan: DEXA scan ?? Prior Scan for comparison: ??none ?? Skeletal sites scanned: Lumbar spine L 2-4 and Left femoral neck. Current pharmacologic therapy for bone loss: none ?? Patient identified risk factors: descent and family history of osteoporosis RESULT: LUMBAR SPINE BMD (gm/cm2): 0.867 T score: -1.45 RESULT: HIP BMD (gm/cm2): 0.669 T score: -2.71 Z score: -0.88 CONCLUSION: osteoporosis RECOMMENDATIONS: The National Osteoporosis Foundation recommends medical treatment for post-menopausal women and men >50 with: 1) prior hip or vertebral fracture; 2) T-score at spine or hip -2.5 or lower Given the risk of a non-spinal fracture, ??consider the use of a bisphosphonate if clinically indicated. Assure that the patient does not have hypocalcemia prior to initiating therapy. All patients should follow current guidelines for calcium and vitamin D intake. All patients should be considered for fall prevention ??Encourage regular exercise, ??smoking cessation and no more then moderate alcohol intake. Repeat bone density is recommended in 2 years (after therapy has begun) ?? if clinically indicated. Additional Comments: For routine cases of osteoporosis consider the following laboratory evaluation if not already checked: Serum calcium: ??(to rule out hypocalcemia (in malabsorption/Vitamin D deficiency) or hypercalcemia (hyperparathyroidism); correct abnormalities prior to treatment) 25 hydroxy Vitamin D level (should be > 30 ng/ml) It is important to assure that Vitamin D level is optimal prior to therapy 24 hr urinary calcium excretion on a normal calcium intake. ??This is low in malabsorptive states (such as celiac disease) or in Vitamin D deficiency. ??Hypercalcuria can be evaluated and ??managed medically. Serum creatinine (if bisphosphonate therapy is being considered) --contraindicated if GFR is < 30) TSH: ??Do only if the patient is on thyroid replacement to rule out over-replacement (can cause bone loss) Lui Klein M.D. [facility] 02/12/2012 Director, Osteoporosis Services, [facility] Procedure Note Lui Klein - 02/12/2012 Bone Density Interpretation Is scan interpretable? Spine yes Hip yes Indication for scan: DEXA scan Prior Scan for comparison: none Skeletal sites scanned: Lumbar spine L 2-4 and Left femoral neck. Current pharmacologic therapy for bone loss: none Patient identified risk factors: descent and family history ofosteoporosis RESULT: LUMBAR SPINE BMD (gm/cm2): 0.867 T score: -1.45 RESULT: HIP BMD (gm/cm2): 0.669 T score: -2.71 Z score: -0.88 CONCLUSION: osteoporosis RECOMMENDATIONS: The National Osteoporosis Foundation recommends medicaltreatment for post-menopausal women and men >50 with: 1) prior hip or vertebral fracture; 2) T-score at spine or hip -2.5 or lower Given the risk of a non-spinal fracture, consider the use of abisphosphonate if clinically indicated. Assure that the patient does nothave hypocalcemia prior to initiating therapy. All patients should follow current guidelines for calcium and vitamin Dintake. All patients should be considered for fall prevention Encourageregular exercise, smoking cessation and no more then moderate alcoholintake. Repeat bone density is recommended in 2 years (after therapy has begun)if clinically indicated. Additional Comments: For routine cases of osteoporosis consider thefollowing laboratory evaluation if not already checked: Serum calcium: (to rule out hypocalcemia (in malabsorption/Vitamin Ddeficiency) or hypercalcemia (hyperparathyroidism); correct abnormalitiesprior to treatment) 25 hydroxy Vitamin D level (should be > 30 ng/ml) It is important toassure that Vitamin D level is optimal prior to therapy 24 hr urinary calcium excretion on a normal calcium intake. This is lowin malabsorptive states (such as celiac disease) or in Vitamin Ddeficiency. Hypercalcuria can be evaluated and managed medically. Serum creatinine (if bisphosphonate therapy is being considered)--contraindicated if GFR is < 30) TSH: Do only if the patient is on thyroid replacement to rule outover- replacement (can cause bone loss) Lui Klein M.D. 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
--- OUTSIDE RECORDS SUMMARY | 2024-02-09 17:06 | XMS_ITS | Data Portability ---
[facility] Address [address] [facility] [address] [place] [address] Care Team Providers Care Flange Turner Name Role Phone DIMAS ASENCIO Primary Care Provider Assessment No assessment recorded. Plan of Treatment Reminders Order Date Submit Date Provider Last Modified By Organization Details Last Modified Time Details Appointments None recorded. Lab urinalysi s, dipstick 2020 021 [email or web address] Not available 12:06:44 Referral None recorded. Procedures None recorded. Surgeries None recorded. Imaging None recorded. Medication Orders None recorded. Patient TargetsNo targets recorded. Patient InstructionsNo instructions recorded. Reason for Referral None Reported. Results Created Date Observation Date Name Description Value Unit Range Abnormal Flag LastModifiedBy Organization Detail LastModifiedTime 04/29/2021 urina lysis , dipst ick Color-Status Yellow Not Available [facility] [address], [place], [address], 04/29/2021 12:06:21 04/29/2021 urina lysis , dipst ick Clarity-Stat us Clear Not Available [facility] [address], [place], [address], 04/29/2021 12:06:21 04/29/2021 urina lysis , dipst ick pH-Status 5.5 Not Available [facility] [address], [place], [address], 04/29/2021 12:06:21 04/29/2021 urina lysis , dipst ick Nitrates-Sta tus negati ve Not Available [facility] [address], [place], [address], 04/29/2021 12:06:21 04/29/2021 urina lysis , dipst ick Blood-Status Negati ve Not Available [facility] [address], [place], [address], 04/29/2021 12:06:21 04/29/2021 urina lysis , dipst ick Leuko-Status Negati ve Not Available [facility] [address], [place], [address], 04/29/2021 12:06:21 04/30/20 21 04/29/2021 bladd er scan (PROC ) No observ ation record ed. BARCODE Not Available 04/30/2021 09:16:36 Result Notes None recorded. Problems Name Status Onset Date Resolution Date Notes Provider Name and Address Organization Details Recorded Time Finding of desire for urination Active 10/01/19 20 R39.15 : Urgency of urination Not Available [facility] 01/23/2020 02:01:44 Problem Notes None recorded. Procedures Surgical History Date Name Laterality Status Provider Name and Address Organization Details Recorded Time 04/29/20 21 Bladder Scan completed Colleen Arndt MD [address] [place] [address],[address], [place], [address], [facility] 04/29/2021 12:06:12 09/07/19 21 Colonoscopy completed Colleen Arndt MD [address] [place] [address],[address], [place], [address], [facility] 04/29/2021 12:05:37 Unlisted procedure breast completed Colleen Arndt MD [address] [place] [address],[address], [place], [address], [facility] 04/29/2021 12:03:03 Appendectomy completed Colleen Arndt MD [address] [place] [address],[address], [place], [address], [facility] 04/29/2021 12:03:08 Total Hysterectomy completed Colleen Arndt MD [address] [place] [address],[place] [address], [place], [address], [facility] 04/29/2021 12:03:14 Unlisted px phrnx adnd/tnsl completed Colleen Arndt MD [address] [place] [address],[address], [address], [facility] 04/29/2021 12:03:28 biopsy of lung completed Colleen Arndt MD [address] [place] [address],[address], [address], [facility] 04/29/2021 12:03:51 Orthopedic Surgery completed Colleen Arndt MD [address] [place] [address],[address], [address], [facility] 04/29/2021 12:04:09 Imaging Results Imaging Date Name Status LastModified by Organiz ation Details LastModified Time 04/29/2021 bladder scan (PROC) completed BARCODE Information not available 04/30/2021 09:16:36 Procedure Notes None recorded. Medical Equipment None Reported. Allergies Allergen ID Allergen Name Allergen Category Reaction Reaction Severity Criticality Documentation Date Start Date Code Code System Note Provider Name and Address Organization Details Recorded Time 165456 epinephri ne medicatio n Not available Not available Not available 01/23/20202019 3992 RxNorm Not Available [facility] 00:47:48 773508 Substance with sulfonami de structure and antibacte rial mechanism of action (substanc e) medicatio n Not available Not available Not available 04/29/2021 36335 8003 SNOMED Colleen Arndt MD [address] [place] [address],[address] [place] [address], [address], [facility] 1 11:58:07 Medications Name Sig Start Date Stop Date Status Note LastModified by Organization Details LastModified Time azithromyci n 250 mg tablet TAKE 2 TABLETS BY MOUTH ON DAY 1, THEN TAKE 1 TABLET ONCE DAILY ON DAYS 2 THROUGH 5 04/29 completed Not Available Not Available Not Available valacyclovi r 1 gram tablet take 2 tablet by mouth at onset repeat in 12 hours as needed repeat for each outbreak active Not Available Not Available No t Available prednisone 5 mg tablet TAKE 3 TABLETS BY MOUTH EVERY MORNING FOR 1 WEEK, THEN TAKE 2 TABLETS IN THE MORNING FOR 1 WEEK AND THEN TAKE 1 TABLET IN THE MORNING FOR 1 04/29 completed Not Available Not Available Not Available cefadroxil 500 mg capsule 04/29 completed Not Available Not Available Not Available doxycycline monohydrate 100 mg capsule TAKE 1 CAPSULE BY MOUTH TWICE DAILY FOR 7 DAYS 04/29 completed Not Available Not Available Not Available acyclovir 5 % topical ointment APPLY A THIN LAYER TO LESIONS 6 TIMES DAILY FOR 7 DAYS 04/29 completed Not Available Not Available Not Available Synthroid 50 mcg tablet active Not Available Not Available Not Available folic acid 1 mg tablet active Not Available Not Available Not Available metoprolol succinate ER 25 mg tablet,exte nded release 24 hr Take 1-3 tablets by mouth daily as needed for palpitati ons. active Not Available Not Available No t Available methylpredn isolone 4 mg tablets in a dose pack Take as directed on package active Not Available Not Available No t Available methotrexat e sodium (PF) 25 mg/mL injection solution active Not Available Not Available Not Available rosuvastati n 5 mg tablet 04/29 completed Not Available Not Available Not Available BD SafetyGlide Tuberculin Regular Bevel 1 mL 27 x 1/2 syringe active Not Available Not Available Not Available nitrofurant oin monohydrate /macrocryst als 100 mg capsule TAKE 1 CAPSULE BY MOUTH TWICE DAILY FOR 5 DAYS 04/29 completed Not Available Not Available Not Available levothyroxi ne 04/29 completed Not Available Not Available Not Available Daily Multi-Vitam in active Not Available Not Available Not Available Orencia infusion monthly 500mg active Not Available Not Available No t Available Enbrel SureClick 50 mg/mL (1 mL) subcutaneou s pen injector 04/29 completed Not Available Not Available Not Available aspirin 81 mg capsule Take by oral route. active Not Available Not Available No t Available Vitals Date Recorded Body height Body mass index (BMI) Body weight Provider Name and Address Organization Details Last Updated DateTime 04/29/2021 154.94 cm 23.8 kg/m2 46068.64 g Colleen Arndt MD [address] [facility],[address], [address] 04/29/2021 11:57:47 Social History Question Answer Notes LastModified by Organizat ion Details LastModified Time Tobacco Smoking Status Former Smoker Colleen Arndt MD [address] [place] [address],[facility] [address], [place], [address], [facility] 04/29/2021 12:02:27 What Is Your Level Of Alcohol Consumption? None Information not available 04/29/2021 What Is Your Level Of Caffeine Consumption? None Information not available 04/29/2021 When Did You Quit Smoking? 14+yearssin saadcishellie barrosote Information not available 04/29/2021 What Was The Date Of Your Most Recent Tobacco Screening? 04/29/2021 Information not available 04/29/2021 Do You Use Any Illicit Or Recreational Drugs? No Information not available 04/29/2021 Do You Or Have You Ever Used Any Other Forms Of Tobacco Or Nicotine? No Information not available 04/29/2021 Sex: Unknown Functional Status None recorded. Mental Status None recorded. Family History Relationship Description Onset Age of this Age Resolved Age Notes Father No current problems or disability Mother No current problems or disability Medical History Condition Response Other Y GERD/Acid Reflux Y Gynecological History Statement/Question Response Leaking urine with intercourse N Sexually Active? Y Pain with intercourse N Obstetrics History GPAL:G 5 P 4 0 1 0 Type Value Full Term 4 Spontaneous 1 Total 5 Past Encounters Encounter ID Performer Location Encounter Start Date Encounter Closed Date Diagnosis/Indication Diagnosis SNOMED-CT Code [id number] Colleen Arndt MD [facility] [address] [address] 04/29/2021 11:30:54 04/30/2021 10:37:38 Incontinence [id number] Health Concerns Section Related Observation LastModified by Organization Detai ls LastModified Time None Recorded Concern Status LastModified by Organization Details LastModified Time None Recorded Advance Directives Directive None Recorded Payers Encounter Date Sequence Insurance Name Policy Number Policy Armando Covered Member ID Armando Member ID Guarantor Name 04/29/2021 1 [place]: [employer] Dianna Hansentamia [id number] Dianna Andinosuzanne 04/29/2021 2 WPS - FOR LIFE (MEDICARE SUPPLEMENT) Dianna Andinouszanne [id number] Dianan Wang Tabatha Notes Date Note Type Note Provider Name and Address Organization Details Recorded Time 04/29/2021 text/html HPI Notes: followed for OAb/urge incotinence; did not take ditropan She still has some urge incontinence No stress incontinence Cysto was normal in 09/2019 Colleen Arndt MD [address] [facility] [address], [place], [address], [facility] 04/29/2021 20:14:38 OBGyn Episode No OBEpisode recorded.
--- OUTSIDE RECORDS SUMMARY | 2024-02-09 17:06 | XMS_ITS | Continuity of Care Document ---
Author Name [facility] Organization [facility] Care Team Providers Care Bindery Assistant Name Role Phone [facility] Unavailable Unavailable Problems Combined list of problems from Department of [facility] and Veterans Affairs facilities. It does not include entries that were removed or entered in error. Problem Status Onset Date Problem Type Date of Resolution Comments Source Ankle/Foot Joint Pain Active Condition [facility] Examination of participant in clinical trial (ICD-9-CM V70.7) Active Condition [facility] Hi-risk med, current Active Condition [facility] Inflamm Polyarthritis Active Condition [facility] Long-Term Use NSAID's Active Condition [facility] Primary Raynaud's phenomenon (ICD-9-CM 443.0) Active Condition [facility] Rheumatoid Arthritis Active Condition [facility] Wrist Joint Pain Active Condition [facility] Medications Combined list of outpatient medications from [facility] and [facility] Affairs facilities.Medications provided include 1) outpatient medications from the last 15 months, and 2) patient-reported medications. Medication Details Route Status Patient Instructions Prescription Expires Prescription Number Last Dispense Date Ordering Provider Order Date Order Qty Source ALBUTEROL SULFATE HFA (albuterol sulfate), 90 MCG, HFA AER AD, INHALATION, [facility], 18 g CANISTER Active [id number] 2023 18 Pharmac y Data Transac tion Service Facilit y ASPIRIN 81MG TAB,EC ASPIRIN 81MG TAB,EC Non-VA TAKE ONE TABLET BY MOUTH EVERY DAY Jul 03, 2007 Non-VA Document ed by: WINNIE BROTHERS Document ed at: [facility] ORAL ACTIVE WINNIE BROTHERS 2006 [facility] ETANERCEPT INJ,PWDR ETANERCE PT INJ,PWDR Non-VA INJECT 50MG SYRINGE UNDER THE SKIN TWICE WEEKLY Sep 02, 2011 Non-VA Document ed by: CLARENCE OLEA Document ed at: [facility] SUBCUT ANEOUS ACTIVE SINDY OLEA 2011 [facility] FOLIC ACID (folic acid), 1 MG, TABLET, ORAL, [facility], 1800 ea. BOTTLE Cancele d [id number] : 2023 0 Pharmac y Data Transac tion Service Facilit y FOLIC ACID (folic acid), 1 MG, TABLET, ORAL, [facility], 1800 ea. BOTTLE Active [id number] 2023 90 Pharmac y Data Transac tion Service Facilit y FOLIC ACID (folic acid), 1 MG, TABLET, ORAL, [facility], 1800 ea. BOTTLE Active [id number] 4 2023 90 Pharmac y Data Transac tion Service Facilit y FOLIC ACID 1MG TAB FOLIC ACID 1MG TAB Non-VA TAKE ONE TABLET BY MOUTH EVERY DAY Jul 03, 2007 Non-VA Document ed by: WINNIE BROTHERS Document ed at: [facility] ORAL ACTIVE WINNIE BROTHERS 2006 [facility] IBUPROFEN TAB IBUPROFE N TAB Non-VA TAKE 400-800 BY MOUTH PRN December 11, 2012 Non-VA Document ed by: WINNIE BROTHERS Document ed at: [facility] ORAL ACTIVE WINNIE BROTHERS 2012 [facility] LANSOPRAZOL E 30MG CAP,EC LANSOPRA ZOLE 30MG CAP,EC Non-VA TAKE 1 CAPSULE BY MOUTH TWICE A DAY Jul 03, 2007 Non-VA Document ed by: WINNIE BROTHERS Document ed at: [facility] ORAL ACTIVE WINNIE BROTHERS 2006 [facility] LEVOTHYROXI NE NA 50MCG TAB (SYNTHROID) LEVOTHYR OXINE NA 50MCG TAB (SYNTHRO ID) Non-VA TAKE ONE TABLET BY MOUTH EVERY DAY Jul 03, 2007 Non-VA Document ed by: WINNIE BROTHERS Document ed at: [facility] ORAL ACTIVE WINNIE BROTHERS 2006 [facility] LEVOTHYROXI NE SODIUM (levothyrox ine sodium), 50 MCG, TABLET, ORAL, [facility], 100 ea. BOTTLE Active [id number] 2023 90 Pharmac y Data Transac tion Service Facilit y METHOTREXAT E (METHOTREXA TE SODIUM), 25MG/ML, VIAL, INJECTION, [employer] PHARMA IN, 2 ml VIAL Cancele d [id number] : 2023 0 Pharmac y Data Transac tion Service Facilit y METHOTREXAT E (W/PRESERVA TIVE) INJ METHOTRE XATE (W/PRESE RVATIVE) INJ Non-VA INJECT 0.5 INTRAMUS CULAR QWEEK Sep 02, 2011 Non-VA Document ed by: CLARENCE OLEA Document ed at: [facility] INTRAM USCULA R ACTIVE SINDY OLEA 2011 [facility] METHOTREXAT E SODIUM (methotrexa te sodium/PF), 25 MG/ML, VIAL, INJECTION, [place]/H IKMA, 2 ml VIAL Cancele d [id number] : 2023 0 Pharmac y Data Transac tion Service Facilit y METHOTREXAT E SODIUM (methotrexa te sodium/PF), 25 MG/ML, VIAL, INJECTION, [place]/H IKMA, 2 ml VIAL Active [id number] 2023 26 Pharmac y Data Transac tion Service Facilit y METHOTREXAT E SODIUM (methotrexa te sodium/PF), 25 MG/ML, VIAL, INJECTION, [place]/H IKMA, 2 ml VIAL Active [id number] 2023 26 Pharmac y Data Transac tion Service Facilit y METHOTREXAT E SODIUM (methotrexa te sodium/PF), 25 MG/ML, VIAL, INJECTION, [place]/H IKMA, 2 ml VIAL Active [id number] 2023 26 Pharmac y Data Transac tion Service Facilit y METOPROLOL TARTRATE (metoprolol tartrate), 25 MG, TABLET, ORAL, [facility] 1000 ea. BOTTLE Cancele d [id number] : 2023 0 Pharmac y Data Transac tion Service Facilit y METOPROLOL TARTRATE (metoprolol tartrate), 25 MG, TABLET, ORAL, [employer] 1000 ea. BOTTLE Cancele d [id number] : 2023 0 Pharmac y Data Transac tion Service Facilit y METOPROLOL TARTRATE (metoprolol tartrate), 25 MG, TABLET, ORAL, [employer] 1000 ea. BOTTLE Cancele d [id number] : 2022 0 Pharmac y Data Transac tion Service Facilit y METOPROLOL TARTRATE (metoprolol tartrate), 25 MG, TABLET, ORAL, [employer] 1000 ea. BOTTLE Active [id number] 2023 60 Pharmac y Data Transac tion Service Facilit y NITROFURANT OIN MONO-MACRO (nitrofuran toin monohydrate /macrocryst als), 100 MG, CAPSULE, ORAL, [employer] PHARMA, 100 ea. BOTTLE Cancele d [id number] : 2023 0 Pharmac y Data Transac tion Service Facilit y PAXLOVID (EUA) (nirmatrelv ir/ritonavi r), 300-100 MG, TAB DS PK, ORAL, [facility] 30 ea. BLIST PACK Active [id number] 2023 30 Pharmac y Data Transac tion Service Facilit y PREDNISONE (prednisone ), 5 MG, TABLET, ORAL, [employer]/AN I PH, 1000 ea. BOTTLE Active [id number] 2023 30 Pharmac y Data Transac tion Service Facilit y SAFETYGLIDE TB SYRINGE (syringe with needle,disp osable, 1 mL), 27GX1/2, DISP SYRIN, MISCELL, [facility], 100 ea. BOX Cancele d [id number] : 2023 0 Pharmac y Data Transac tion Service Facilit y SAFETYGLIDE TB SYRINGE (syringe with needle,disp osable, 1 mL), 27GX1/2, DISP SYRIN, MISCELL, [facility], 100 ea. BOX Active [id number] 2023 12 Pharmac y Data Transac tion Service Facilit y SAFETYGLIDE TB SYRINGE (syringe with needle,disp osable, 1 mL), 27GX1/2, DISP SYRIN, MISCELL, [facility], 100 ea. BOX Active [id number] 2023 12 Pharmac y Data Transac tion Service Facilit y SAFETYGLIDE TB SYRINGE (syringe with needle,disp osable, 1 mL), 27GX1/2, DISP SYRIN, MISCELL, [facility], 100 ea. BOX Active [id number] 2023 12 Pharmac y Data Transac tion Service Facilit y TUBERCULIN SYRINGE (syringe with needle,disp osable, 1 mL), 27GX1/2, DISP SYRIN, MISCELL, [facility], 100 ea. BOX Cancele d [id number] : 2023 0 Pharmac y Data Transac tion Service Facilit y Allergies, Adverse Reactions, Alerts Combined list of allergies from Department of Defense and Veterans Affairs facilities. It does not include entries that were removed or entered in error. Substance Category Reaction Severity Reaction type Status Date Reported Comments Source EPINEPHRINE Propensity to adverse reactions to drug (finding) Low blood pressure active 6 [facility] Immunizations Combined list of available immunizations from the Department of Defense and Veterans Affairs facilities. Immunization Series Date Given Administered By Site Reaction Lot Number CVX Code Drug Ordinary Seaman Status Comments Source COVID-19, mRNA, LNP-S, PF, 100 mcg or 50 mcg dose 2021 T[place], [employer] (MOD) Not Given COVID-19, mRNA, LNP-S, PF, 100 mcg or 50 mcg dose DoD influenza, high-dose, quadrivalent 2020 [place], () Not Given influenza , high-dose , quadrival ent DoD influenza, high-dose, quadrivalent 2019 [place], () Not Given influenza , high-dose , quadrival ent DoD zoster recombinant 2018 [facility] () Not Given zoster recombina nt DoD Influenza, high dose seasonal 2016 [facility] () Not Given Influenza , high dose seasonal [facility] TDAP 2011 115 complet ed GALKathleen GRAY [id number] , 6 [facility] INFLUENZA, UNSPECIFIED FORMULATION 2011 88 complet ed FLU SHOT GIVEN [facility] INFLUENZA, UNSPECIFIED FORMULATION 2010 88 complet ed [facility] INFLUENZA, UNSPECIFIED FORMULATION 2007 88 complet ed [facility] Social History Combined list of available smoking, tobacco, and other social history from Department of Defense and Veterans Affairs facilities. Social History Type Response Date Comment Sourc e This section is an empty social history section. 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
[2024-02-09 17:08] LABS: RBC Urine 0-2 (0-2); Squamous Epithelial Cell Urine Few (None-Few); WBC Urine 0-2 (0-5)
[2024-02-09 17:09] LABS: Fine Granular Casts Urine Few
[2024-02-09 17:35] LABS: Basophils Absolute Auto 0.02 K/uL (0.00-0.30); Basophils Percent Auto 0.3 % (0.0-3.0); Eosinophils Absolute Auto 0.15 K/uL (0.00-0.50); Eosinophils Percent Auto 2.5 % (0.0-7.0); Hematocrit 37.1 % (33.0-51.0); Hemoglobin* 12.6 gm/dL (12.0-16.0); Immature Granulocytes Abs Auto 0.01 K/uL (0.00-0.30); Immature Granulocytes Pct Auto 0.2 %; Lymphocytes Absolute Auto 1.61 K/uL (0.90-2.90); Lymphocytes Percent Auto 26.9 % (20-44); Mean Corpuscular HGB Conc 34 gm/dL (32-36); Mean Corpuscular Hemoglobin 30 pg (26-34); Mean Corpuscular Volume 90 fL (80-100); Monocytes Percent Auto 8.9 % (0.0-11.0); Neutrophils Absolute Auto 3.66 K/uL (1.7-7.0); Neutrophils Percent Auto 61.2 % (42.0-72.0); Platelet Count* 259 K/uL (140-440); RDW Coefficient of Variation % 13.4 % (11.5-15.5); Red Blood Count 4.14 m/uL (4.00-5.20); White Blood Count* 5.98 K/uL (4.50-11.00)
[2024-02-09 17:46] LABS: Chloride* 103 mmol/L (96-114); Sodium* 135 mmol/L (135-149)
[2024-02-09 17:49] LABS: Creatinine* 0.8 mg/dL (0.5-1.5); Est. Creatinine Clearance* 36.68; Estimated Glomerular Filt Rate 77 ml/min
[2024-02-09 17:50] LABS: Anion Gap 9 mEq/L (7-15); Blood Urea Nitrogen* 15 mg/dL (7-30); Calcium* 8.9 mg/dL (8.4-10.6); Carbon Dioxide* 23 mmol/L (20-32); Glucose* 104 mg/dL (60-115)
--- NOTE | 2024-02-09 17:51 | ED_ITS ---
HPI - General Adult General Chief complaint: Flank Pain Stated complaint: UTI-kidney infection, backache Time Seen by Provider: 02/09/24 16:38 Source: patient Mode of arrival: ambulatory Limitations: no limitations History of Present Illness HPI narrative: 73-year-old female coming in today concerned about UTI. Patient was diagnosed with a UTI 5 days ago and just finished her antibiotics. She states that her ur inary symptoms which included increased urgency and frequency, dysuria and urinary incontinence have all resolved. However, she continues to have low back pain and she is concerned this is because of the UTI. She denies any fevers or chills. No nausea or vomiting. Appetite has been normal. Normal energy. Patient does exercise regularly. Denies any new activity that she is aware of. Pain is located across the mid to lower back on both sides but discomfort is greater on the right. Nothing really seems to make it better or worse. She denies any skin rashes. Pain does not radiate, no pain into her groin or abdomen. Related Data Home Medications ?Medication ?Instructions ?Recorded ?Confirmed azithromycin 250 mg tablet 250 mg PO 05/17/22 05/17/22 codeine 10 mg-guaifenesin 100 mg/5 5 ml PO 05/17/22 05/17/22 mL oral liquid fluticasone propionate 110 g inhalation 05/17/22 05/17/22 mcg/actuation HFA aerosol inhaler (Flovent HFA) folic acid 1 mg tablet 1 mg PO 05/17/22 05/17/22 infliximab 100 mg intravenous IV 05/17/22 05/17/22 solution (Remicade) levothyroxine 50 mcg tablet 50 mcg PO 05/17/22 05/17/22 (Synthroid) methotrexate sodium (PF) 25 mg/mL 25 mg IM 05/17/22 05/17/22 injection solution metoprolol tartrate 25 mg tablet 25 mg PO 05/17/22 05/17/22 prednisone 20 mg tablet 20 mg PO 05/17/22 05/17/22 syringe with needle 1 mL 27 x 1/2 #25 ea 05/17/22 05/17/22 (BD SafetyGlide Tuberculin Regular Bevel) Previous Rx's ?Medication ?Instructions ?Recorded doxycycline hyclate 100 mg capsule 100 mg PO BID #14 caps 09/16/22 Allergies Allergy/AdvReac Type Severity Reaction Status Date / Time No Known Drug Allergies Allergy Verified 05/17/22 14:43 Review of Systems Status of ROS: Reports: 10 or more systems reviewed and unremarkable except as noted in History and below [facility] Social History Smoking Status: Former smoker Do you use any of these nicotine containing products: None Second hand tobacco smoke exposure: Yes ( smokes outside) How often do you have a drink containing alcohol: never AUDIT-C Alcohol total score: 0 Non-prescribed substance use: denies use service: No Exam Narrative: Exam Narrative: Well-nourished well-developed patient in no acute distress. Alert and oriented. Answers questions appropriately. Mood and affect are appropriate. Thoughts are goal oriented and rational. No tangential or magical thinking noted. Patient speaks in full sentences without needing to catch her breath. HEENT: Normocephalic atraumatic. Pupils are equally round reactive to light. Extraocular muscles are intact. Conjunctivae are moist without any icterus noted. Moist mucous membranes. Cardiovascular: Heart is regular rate and rhythm S1 and S2 are present without any murmurs. Lungs: Clear to auscultation bilaterally no wheezes rhonchi or rales are appreciated. Patient takes deep breaths without any discomfort. Abdomen: Soft and nontender nondistended with normal bowel sounds. No guarding or rebound. Skin: Well perfused without any obvious rashes. Back: Normal appearance. She has no CVA tenderness on the left or the right. She has mild discomfort with palpation of the paraspinal musculature of the upper lumbar spine on the right. Const: Vital Signs, click to edit/add: Vital Signs - 24 hr 02/09/24 16:39 Temperature 97 F L Pulse Rate [Left P ulse Oximeter] 78 Respiratory Rate 18 Blood Pressure [Le ft Upper Arm] 128/77 Pulse Oximetry 97 Oxygen Delivery Me thod Room Air Course Course ED Course: UA was entirely normal. Urine culture was not done given her recent use of antibiotics. Patient was concerned about the potential of infection or kidney dysfunction causing her pain so we did do a CBC and chemistries which were entirely normal. Patient felt reassured. Vital Signs Vital signs: Initial Vital Signs Temperature 97 F L 02/09/24 16:39 Temperature Source Temporal Artery Scan 02/09/24 16:39 Pulse Rate 78 02/09/24 16:39 Pulse Rhythm Regular 02/09/24 16:39 Pulse Strength 3+ Normal 02/09/24 16:39 Respiratory Rate 18 02/09/24 16:39 Blood Pressure 128/77 02/09/24 16:39 Blood Pressure Mean 94 02/09/24 16:39 Blood Pressure Position Semi-Fowlers 02/09/24 16:39 Pulse Oximetry 97 02/09/24 16:39 Oxygen Delivery Method Room Air 02/09/24 16:39 Vital Signs Temperature 97 F L 02/09/24 16:39 Pulse Rate 78 02/09/24 16:39 Respiratory Rate 18 02/09/24 16:39 Blood Pressure 128/77 02/09/24 16:39 Pulse Oximetry 97 02/09/24 16:39 Oxygen Delivery Method Room Air 02/09/24 16:39 Temperature 97 F L 02/09/24 16:39 Pulse Rate 78 02/09/24 16:39 Respiratory Rate 18 02/09/24 16:39 Blood Pressure 128/77 02/09/24 16:39 Pulse Oximetry 97 02/09/24 16:39 Oxygen Delivery Method Room Air 02/09/24 16:39 Medical Decision Making MDM Narrative Medical decision making narrative: 73-year-old female with low back pain, likely musculoskeletal in nature. We discussed symptomatic treatment and reasons for follow-up. Lab Data Lab results reviewed: Yes I reviewed the patient's lab results Labs: Lab Results 02/09/24 02/09/24 Range/Units 16:38 17:24 WBC 5.98 (4.50-11.00) K/uL RBC 4.14 (4.00-5.20) m/uL Hgb 12.6 (12.0-16.0) gm/dL Hct 37.1 (33.0-51.0) % MCV 90 (80-100) fL MCH 30 (26-34) pg MCHC 34 (32-36) gm/dL RDW Coeff of Katia 13.4 (11.5-15.5) % Plt Count 259 (140-440) K/uL Neut % (Auto) 61.2 (42.0-72.0) % Lymph % (Auto) 26.9 (20-44) % [place] % (Auto) 8.9 (0.0-11.0) % Eos % (Auto) 2.5 (0.0-7.0) % Baso % (Auto) 0.3 (0.0-3.0) % Neut # (Auto) 3.66 (1.7-7.0) K/uL Lymph # (Auto) 1.61 (0.90-2.90) K/uL [place] # (Auto) 0.50 (0.00-0.90) K/UL Eos # (Auto) 0.15 (0.00-0.50) K/uL Baso # (Auto) 0.02 (0.00-0.30) K/uL Abs Immat Gran (auto) 0.01 (0.00-0.30) K/uL Imm/Tot Granulo (auto) 0.2 % Sodium 135 (135-149) mmol/L Potassium 4.0 (3.6-5.1) mmol/L Chloride 103 (96-114) mmol/L Carbon Dioxide 23 (20-32) mmol/L Anion Gap 9 (7-15) mEq/L BUN 15 (7-30) mg/dL Creatinine 0.8 (0.5-1.5) mg/dL Estimated Creat Clear 36.68 Estimated GFR 77 ml/min Glucose 104 (60-115) mg/dL Calcium 8.9 (8.4-10.6) mg/dL Urine Color Yellow (Yellow) Urine Appearance Clear (Clear) Urine pH 5.5 (5.0-8.5) Ur Specific [place] <= 1.005 (1.000-1.030) Urine Protein Negative (Negative) Urine Glucose (UA) Negative (Negative) Urine Ketones Negative (Negative) Urine Blood Negative (Negative) Urine Nitrite Negative (Negative) Urine Bilirubin Negative (Negative) Urine Urobilinogen 0.2 (0.2-1.0) Ur Leukocyte Esterase Negative (Negative) Urine RBC 0-2 (0-2) Urine WBC 0-2 (0-5) Ur Squamous Epith Cells Few (None-Few) Urine Bacteria None (None) Fine Granular Casts Few A (None) Discharge Plan Discharge Clinical Impression: Low back pain Patient Disposition: Home, Self-Care Condition: Stable Additional Instructions: The lab work today was entirely normal. There is no evidence of bladder infection. Recommend gentle stretching, ibuprofen as needed for discomfort, heat to the lower back as needed, do not apply heat directly to the skin. Your blood pressure today looked wonderful at 128/77. Prescriptions: No Action prednisone 20 mg tablet 20 mg PO azithromycin 250 mg tablet 250 mg PO Patient Comments: Has not started the medication yet codeine-guaifenesin 10-100 mg/5 mL liquid 5 ml PO Patient Comments: TAKE 10 ML BY MOUTH AT BEDTIME IF NEEDED FOR COUGH. methotrexate sodium (PF) 25 mg/mL solution 25 mg IM (DME) BD SafetyGlide TB Reg Bevel 1 mL 27 x 1/2 syringe See Rx Instructions .ROUTE .MEDSUPPLY Qty: 25 Rx Instructions: As directed metoprolol tartrate 25 mg tablet 25 mg PO Patient Comments: Take 1-2 tablets by mouth daily as needed for palpitations levothyroxine [Synthroid] 50 mcg tablet 50 mcg PO folic acid 1 mg tablet 1 mg PO fluticasone propionate [Flovent HFA] 110 mcg/actuation HFA aerosol inhaler inhalation infliximab [Remicade] 100 mg recon soln IV doxycycline hyclate 100 mg capsule 100 mg PO BID Qty: 14 0RF Follow Up/Referrals: Alla Valero PA-C [Primary Care Provider] - Stand Alone Forms: [employer] Info Instructions
[2024-02-09 18:05] LABS: Slide Review Reflex No
== END 2024-02-09 18:32 | disposition home or self-care (01) ==
PROVIDERS: Emergency Provider Family Medicine; PCP Student in an Organized Health Care Education/Training Program
DX: R07.9 Chest pain, unspecified (principal)
CPT/HCPCS: 36415; 80048; 81001; 85025; 87086; 99283; 99284